=== PATIENT | female | born 1960 | race African-American/Black ===

== ENCOUNTER 2019-06-07 08:00 | Inpatient (IN) | payer OTHER ==
[2019-05-24 12:25] VITALS: BMI 35.8
--- NOTE | 2019-06-06 21:58 | HP ---
Admitting History and Physical - Admission Chief Complaint: right knee osteoarthritis x years History of Present Illness: 59 year old female presents in regard to their right knee. Long-standing history of right knee osteoarthritis. Patient complains of pain, limited range of motion, difficulty ambulating, and difficulty with activities of daily living. Patient has failed conservative treatment options including PO medications, activity modification, injections, and exercise programs. At this point, patient like to proceed with surgical intervention, right total knee arthroplasty MAKOplasty. History Source: Patient - Past Medical History Cardiovascular: Yes: HTN, Hyperlipdemia Renal/: Yes: Other (overactive bladderpl) Infectious Disease: Yes: Other (HSV) Psych: Yes: Depression Musculoskeletal: Yes: Osteoarthritis - Past Surgical History Additional Past Surgical History: See written history & physical. - Smoking History Smoking history: Former smoker Have you smoked in the past 12 months: No Aproximately how many cigarettes per day: 12 If you are a former smoker, when did you quit?: 10 y ago - Alcohol/Substance Use Hx Alcohol Use: No Home Medications - Allergies Allergies/Adverse Reactions: Allergies Allergy/AdvReac Type Severity Reaction Status Date / Time No Known Allergies Allergy Verified 05/24/19 12:09 - Home Medications Home Medications: Ambulatory Orders Lisinopril [Prinivil] 20 mg PO BID 06/11/12 Oxycodone HCl/Acetaminophen [Oxycodone-Acetaminophen 10-325] 1 each PO TID #9 tablet 10/10/15 Acyclovir [Zovirax -] 400 mg PO DAILY 05/24/19 Cholecalciferol (Vitamin D3) [Vitamin D3] 1,000 unit PO DAILY 05/24/19 Doxepin HCl [Sinequan -] 25 mg PO BID 05/24/19 Oxybutynin Chloride [Ditropan Xl] 10 mg PO DAILY 05/24/19 Atorvastatin Ca [Lipitor] 20 mg PO DAILY 05/25/19 Hydrochlorothiazide [Hctz -] 25 mg PO DAILY 05/25/19 Nifedipine [Procardia Xl] 60 mg PO DAILY 05/25/19 Oxycodone HCl/Acetaminophen [Percocet 10-325 mg Tablet] 1 tab PO TID PRN Review of Systems - Review of Systems Musculoskeletal: reports: Crepitus (right knee), Decreased ROM (right knee), Joint Pain (right knee), Joint Swelling (right knee) Physical Examination Constitutional: Yes: Well Nourished, No Distress Eyes: Yes: Conjunctiva Clear HENT: Yes: Atraumatic Neck: Yes: Supple Cardiovascular: Yes: Regular Rate and Rhythm Respiratory: Yes: Regular Gastrointestinal: Yes: Soft ...Rectal Exam: Yes: Deferred Musculoskeletal: Yes: Joint Stiffness (right knee), Joint Swelling (right knee) Assessment/Plan 59 year old female presents in regard to their right knee. Long-standing history of right knee osteoarthritis. Patient complains of pain, limited range of motion, difficulty ambulating, and difficulty with activities of daily living. Patient has failed conservative treatment options including PO medications, activity modification, injections, and exercise programs. At this point, patient like to proceed with surgical intervention, right total knee arthroplasty MAKOplasty. Pros, cons, risks, benefits, and alternatives of a right total knee arthroplasty MAKOplasty were discussed with the patient at length. Patient confirms their understanding and consents to proceed with a right total knee arthroplasty MAKOplasty.
[~2019-06-07 08:00] MED LIST: CEFAZOLIN 2 GM in DEXTROSE 5%-WATER - 50 ML IVPB ONE; TRANEXAMIC ACID 1000 MG/10 ML VIAL IVPUSH ONE
[2019-06-07] MEDS: oxyCODONE HCL 10 MG SUSTAINED ACTING TABLET PO ONE ×2 (10:10→16:54)
[2019-06-07] MEDS: PANTOPRAZOLE 40 MG TABLET (FP) PO ONE ×2 (10:10→16:54)
[2019-06-07] MEDS: CELECOXIB 200 MG CAPSULE PO ONE ×2 (10:10→16:53)
[2019-06-07] MEDS ORDERED: ceFAZolin SODIUM 1 GM VIAL ONE ×2 (10:54→11:43)
[2019-06-07] MEDS ORDERED: TRANEXAMIC ACID 1000 MG/10 ML VIAL ONE ×2 (10:54→11:43)
[2019-06-07] MEDS ORDERED: VANCOMYCIN 1,000 MG VIAL (RESTRICTED TO ID ONLY) ONE (10:54)
[2019-06-07] MEDS ORDERED: BUPIVACAINE LIPOSOME/PF (EXPAREL) 266 MG/20 ML VIAL ONE (11:00)
[2019-06-07] MEDS ORDERED: SODIUM CHLORIDE 0.9% P/F 10 ML VIAL IJ ONE (11:00)
[2019-06-07] MEDS ORDERED: MIDAZOLAM HCL 2 MG/2 ML SINGLE DOSE VIAL ONE ×3 (11:00→13:48)
[2019-06-07] MEDS ORDERED: PROPOFOL 20 ML ONE (14:05)
[2019-06-07] MEDS ORDERED: VANCOMYCIN 1,000 MG VIAL (RESTRICTED TO ID ONLY) IVPB ONE (14:20)
[2019-06-07] MEDS ORDERED: TRANEXAMIC ACID 1000 MG/10 ML VIAL IVPB ONE (14:34)
[2019-06-07] MEDS ORDERED: HYDROmorphone HCL/PF 1 MG/ML AMP ONE (14:43)
[2019-06-07] MEDS ORDERED: ACETAMINOPHEN INJECTION 100 ML IVPB ONE (15:01)
[2019-06-07] MEDS ORDERED: ONDANSETRON 4 MG/2 ML VIAL ONE (15:04)
[2019-06-07] MEDS: ACETAMINOPHEN 1000 MG/100 ML VIAL (NON FORMULARY) IVPB ONE ×2 (15:10→16:57)
[2019-06-07] MEDS ORDERED: ONDANSETRON 4 MG/2 ML VIAL IVPUSH PRN ×2 (15:15→21:00)
[2019-06-07] MEDS ORDERED: oxyCODONE HCL 5 MG TABLET PO PRN (15:15)
[2019-06-07] MEDS ORDERED: HYDROmorphone HCL CARPU-JECT 1 MG/1 ML DISP.SYRIN IVPUSH PRN (15:15)
[2019-06-07] MEDS ORDERED: PROMETHAZINE HCL 25 MG/1 ML VIAL IVPUSH PRN (15:15)
--- NOTE | 2019-06-07 15:15 | OP ---
Operative Note - Note: Operative Date: 06/07/19 Pre-Operative Diagnosis: Right knee OA Operation: Right DEVORAH TKA Post-Operative Diagnosis: Same as Pre-op Surgeon: Pedro Mcguire Odd Bundle Worker: Abdon Youssef Anesthesia: Spinal Estimated Blood Loss (mls): 200
[2019-06-07] MEDS ORDERED: ACETAMINOPHEN 1000 MG/100 ML VIAL (NON FORMULARY) IVPB ONE (15:16)
[2019-06-07] MEDS ORDERED: MAG HYDROX/AL HYDROX/SIMETH 30 ML UNIT-DOSE CUP PO PRN (15:24)
[2019-06-07] MEDS ORDERED: MAGNESIUM HYDROX 2400MG/30ML ORAL SUSPENSION 30 ML CUP PO PRN (15:24)
[2019-06-07] MEDS ORDERED: LACTATED RINGERS SOLUTION 1,000 ML IV SCH (15:30)
[2019-06-07] MEDS ORDERED: KETOROLAC TROMETHAMINE 30 MG/1 ML VIAL IVPUSH SCH (15:30)
[2019-06-07] MEDS: oxyCODONE HCL 5 MG TABLET PO PRN (15:40)
[2019-06-07] MEDS ORDERED: traMADol HCL 50 MG TABLET ONE (16:26)
[2019-06-07] MEDS: CEFAZOLIN 2 GM/D5W 2 GM/50 ML ML IVPB SCH (17:36)
[2019-06-07] MEDS ORDERED: traMADol HCL 50 MG TABLET PO SCH (18:00)
--- NOTE | 2019-06-07 20:32 | SURG ---
Surgery Circle Saw Operator Note Circle Saw Operator: Abdon Youssef PA-C Date of Service: 06/07/19 Diagnosis: Right knee osteoarthritis Procedure: DEVORAH RIGHT TOTAL KNEE ARTHROPLASTY I was present for the entirety of the operative procedure. For further detail, please refer to operative report. Visit type - Case Type Case Type: Scheduled - New patient This patient is new to me today: Yes Date on this admission: 06/07/19
[2019-06-07] MEDS: KETOROLAC TROMETHAMINE 30 MG/1 ML VIAL IVPUSH SCH (21:15)
[2019-06-07] MEDS: GABAPENTIN 300 MG CAPSULE (FP) PO SCH (21:16)
[2019-06-07] MEDS: ATORVASTATIN CA 20 MG TABLET (FP) PO SCH (21:16)
[2019-06-07] MEDS: ASCORBIC ACID 500 MG TABLET (FP) PO SCH (21:17)
[2019-06-07] MEDS: CELECOXIB 200 MG CAPSULE PO SCH (21:17)
[2019-06-07] MEDS: traMADol HCL 50 MG TABLET PO SCH (21:17)
[2019-06-07] MEDS: oxyCODONE HCL 10 MG SUSTAINED ACTING TABLET PO SCH (21:19)
[2019-06-07] MEDS: SENNOSIDES/DOCUSATE COMBO (SENNA PLUS) TABLET (UD) PO SCH (21:19)
[2019-06-07] MEDS: LISINOPRIL 20 MG TABLET (FP) PO SCH (21:20)
[2019-06-08] MEDS ORDERED: DEXAMETHASONE SOD PHOSPHATE 10 MG/1 ML VIAL IVPB ONE
[2019-06-08] MEDS: DOXEPIN HCL 25 MG CAPSULE PO SCH ×3 (00:09→21:35)
[2019-06-08] MEDS: CEFAZOLIN 2 GM/D5W 2 GM/50 ML ML IVPB SCH (01:58)
[2019-06-08] MEDS: KETOROLAC TROMETHAMINE 30 MG/1 ML VIAL IVPUSH SCH ×3 (02:05→15:30)
[2019-06-08] MEDS: traMADol HCL 50 MG TABLET PO SCH ×4 (06:17→21:36)
[2019-06-08] MEDS: ASPIRIN 325 MG TABLET PO SCH (08:05)
[2019-06-08 08:16] LABS: CALCIUM 8.6 mg/dl (8.5-10); CREATININE 1.1 mg/dl (0.55-1.3); POTASSIUM 4.6 mmol/L (3.5-5.1)
[2019-06-08] MEDS ORDERED: PT OWN MED DRAWER 7, Y5N ONE ×2 (08:23→20:38)
[2019-06-08 08:40] LABS: HEMATOCRIT 31.5 % (32.4-45.2); HEMOGLOBIN 10.2 GM/dl (10.7-15.3); MCH 27.5 pg (25.7-33.7); MCHC 32.3 g/dl (32.0-36.0); MEAN CELL VOLUME 85.1 fl (80-96); MEAN PLT VOLUME 10.1 fl (7.5-11.1); PLATELET COUNT 243 K/MM3 (134-434); RDW 15.2 % (11.6-15.6); WHITE BLOOD COUNT 11.4 K/mm3 (4.0-10.8)
[2019-06-08] MEDS: SOLIFENACIN SUCCINATE 5 MG TAB PO SCH (09:51)
[2019-06-08] MEDS: oxyCODONE HCL 10 MG SUSTAINED ACTING TABLET PO SCH ×2 (09:55→21:35)
[2019-06-08] MEDS: NIFEdipine E.R 60 MG TABLET (UD) PO SCH (09:55)
[2019-06-08] MEDS: LISINOPRIL 20 MG TABLET (FP) PO SCH ×2 (09:55→21:36)
[2019-06-08] MEDS: GABAPENTIN 300 MG CAPSULE (FP) PO SCH ×2 (09:55→21:36)
[2019-06-08] MEDS: PANTOPRAZOLE 40 MG TABLET (FP) PO SCH (09:55)
[2019-06-08] MEDS: CELECOXIB 200 MG CAPSULE PO SCH ×2 (09:55→21:36)
[2019-06-08] MEDS: HYDROCHLOROTHIAZIDE 25 MG TABLET (FP) PO SCH (09:55)
[2019-06-08] MEDS: SENNOSIDES/DOCUSATE COMBO (SENNA PLUS) TABLET (UD) PO SCH ×2 (09:55→21:35)
[2019-06-08] MEDS: MULTIVITAMINS (DAILY MVI) TABLET (FP) PO SCH (09:55)
[2019-06-08] MEDS: ACYCLOVIR 400 MG TABLET PO SCH (10:00)
[2019-06-08] MEDS: ASCORBIC ACID 500 MG TABLET (FP) PO SCH ×2 (10:05→21:34)
--- NOTE | 2019-06-08 10:59 | SPEC ---
DATE OF OPERATION: 06/07/2019 PREOPERATIVE DIAGNOSIS: Right knee osteoarthritis. POSTOPERATIVE DIAGNOSIS: Right knee osteoarthritis. PROCEDURE: Right total knee replacement with MAKOplasty robotic navigation. ATTENDING SURGEON: Pedro Mcguire MD EMPLOYMENT AND CLAIMS AIDE: BRYCE Turner ANESTHESIA: Spinal plus sedation. ESTIMATED BLOOD LOSS: 200 mL. COMPLICATIONS: None. DISPOSITION: The patient was transferred to the PACU in stable condition. IMPLANTS USED: [place] Triathlon cementless size 5 femoral component, size 4 tibial component, 13-mm posterior stabilized polyethylene component, 32-mm patellar component. INDICATIONS: This is a 59-year-old female who presented to the office complaining of severe right knee pain. She was seen and examined by Dr. Mcguire and diagnosed with severe right knee osteoarthritis. The patient was initially treated conservatively with injections, medications, and physical therapy but continued to have severe pain and ambulatory dysfunction. She was, therefore, indicated for a total knee replacement. The risks, benefits, and alternatives to the procedure were explained to the patient in great detail, and she elected to proceed with the procedure. DESCRIPTION OF PROCEDURE: On the day of surgery, the patient was taken to the operating room and placed on the OR table. Spinal anesthesia was administered by the anesthesiologist. The patient was then positioned supine on the table and all bony prominences were padded. The knee was then prepped and draped in the usual sterile fashion and intravenous antibiotics were given for infection prophylaxis. A surgical time-out was then performed with the team, and the patients identity, procedure, side, availability of implants, and the administration of antibiotics was confirmed. With the knee flexed, a midline incision was made and carried down through the subcutaneous fat to the underlying retinaculum. A medial parapatellar arthrotomy was performed. This was followed by a subperiosteal dissection of the tissue off the proximal, medial tibia. A portion of fat pad was removed from under the patellar tendon, and a small portion of fat was excised off the distal supracondylar femur. Electrocautery and an Aquamantys bipolar sealing device were used to achieve hemostasis. The knee was then flexed further and the anterior horn of the lateral meniscus was released from the midline. Next, the anterior and posterior cruciate ligaments were transected. Grade 4 changes were noted diffusely throughout the knee. Femoral and tibial checkpoints were then placed in the appropriate location using a mallet. Two parallel bicortical self-drilling pins were placed in the tibial diaphysis after making stab incisions and bluntly dissecting down to bone. Two pins were then placed in the distal supracondylar femur. The [employer] navigation arrays were then attached to both the femoral and tibial pins and the lower extremity was then registered to the robotic navigation device using various joint movements, as well as inputting several dozen reference points. The knee was then taken through a full range of motion with a corrective force applied. Alignment in varus/valgus as well as flexion/extension and soft tissue balance was measured in various positions. The navigation device showed a numerical and graphic representation of the soft tissue balance. The components were repositioned virtually using the software until optimal soft tissue balance was achieved on screen. Once this was accomplished, the final plan was saved and sent to the robot. Self-retaining retractors were then placed at the joint line for exposure and protection of the collateral ligaments. The robot was brought into the sterile field and registered with the navigation device. The robotic arm with attached oscillating saw blade was then used to perform femoral and tibial bone cuts as per the saved software plan. The femoral box cut was made using the appropriately sized manual cutting guide. The knee was then irrigated. Trial components were placed and the knee was taken through a full range of motion to assess soft tissue balance and alignment. The range of motion was found to be excellent and the soft tissue balance was optimal and according to plan. The knee was then put into extension and the patella everted. The synovium around the patella was circumscribed with electrocautery. A caliper was used to measure the patellar thickness and a saw was then used to resect the patella at the chondro-osseous junction. The cut surface was then sized and drilled for the appropriate patellar button, with care taken to medialize it. A trial patella was then placed and the knee was again taken through a full range of motion. The knee was found to have both good balance and good patellar tracking. All of the components were removed except the tibial base plate. The appropriate instrumentation was used to drill and punch the proximal tibia for the keel of the final component. All bony surfaces were then cleaned with pulsatile lavage and dried. Cementless [place] Triathlon knee replacement components were then impacted in place and found to have a stable press-fit. A trial polyethylene component was placed and the knee was again taken through a full range of motion to assess stability, balance, and patellar tracking. This was found to be optimal and the trial polyethylene was exchanged for the appropriately sized real implant. The wound was then thoroughly irrigated with normal saline. A 3-minute dilute Betadine lavage was performed. The knee was again irrigated using a pulsatile lavage device. A periarticular injection was used to locally infiltrate the capsular tissues surrounding the implant and prosthesis. Then No. 1 Polysorb and 0 VLoc 180 barbed sutures were used to close the arthrotomy. Then No. 1 Polysorb and 2-0 VLoc 90 sutures were used in the subcutaneous tissues. Then 4-0 undyed Vicryl and Dermabond skin adhesive was used to close the stab incisions made for the navigation pins. The skin was closed using both 3-0 VLoc 90 suture in a running subcuticular fashion and Dermabond skin adhesive. Once this was completed a sterile Aquacel dressing and compressive Mike-wrap was applied. The patient was then awakened and taken to the PACU in stable condition. Shahida JENNINGS/[id number]
--- NOTE | 2019-06-08 20:32 | PN ---
Progress Note (short form) - Note Progress Note: Pt seen and examined. Nausea/constipation. Knee doing well. AVSS Selected Entries 06/09/19 06/09/19 06:00 07:58 Temperature 97.9 F Pulse Rate 79 Respiratory 19 Rate Blood Pressure 102/50 L O2 Sat by Pulse 95 97 Oximetry (%) Oxygen Delivery Room Air Room Air Method Laboratory Tests 06/08/19 06/08/19 06:59 06:59 WBC 11.4 H Hgb 10.2 L Hct 31.5 L Plt Count 243 Sodium 139 Potassium 4.6 Chloride 104 Carbon Dioxide 26 Anion Gap 9 BUN 34.0 H Creatinine 1.1 Est GFR (CKD-EPI)AfAm 63.20 Est GFR (CKD-EPI)NonAf 54.53 Random Glucose 199 H Calcium 8.6 Gen: NAD RLE: c/d/i, NVID A/P 59yo female s/p R DEVORAH TKA Miralax PT/OOB D/C home Friday if feeling better
[2019-06-08] MEDS: ATORVASTATIN CA 20 MG TABLET (FP) PO SCH (21:35)
[2019-06-08] MEDS: POLYETHYLENE GLYCOL 3350 119 GM BTL PO SCH (22:51)
[2019-06-09] MEDS: traMADol HCL 50 MG TABLET PO SCH ×4 (06:22→21:30)
[2019-06-09 07:37] LABS: HEMATOCRIT 27.7 % (32.4-45.2); HEMOGLOBIN 9.1 GM/dl (10.7-15.3); MCH 27.6 pg (25.7-33.7); MCHC 32.7 g/dl (32.0-36.0); MEAN CELL VOLUME 84.5 fl (80-96); MEAN PLT VOLUME 9.3 fl (7.5-11.1); PLATELET COUNT 226 K/MM3 (134-434); RBC 3.28 M/mm3 (3.60-5.2); RDW 14.9 % (11.6-15.6); WHITE BLOOD COUNT 15.4 K/mm3 (4.0-10.8)
[2019-06-09] MEDS: ASPIRIN 325 MG TABLET PO SCH (07:42)
--- NOTE | 2019-06-09 09:11 | DS ---
Physical Examination Vital Signs: Vital Signs Temperature 97.9 F 06/09/19 06:00 Pulse Rate 79 06/09/19 06:00 Respiratory Rate 18 06/09/19 07:58 Blood Pressure 102/50 L 06/09/19 06:00 O2 Sat by Pulse Oximetry (%) 97 06/09/19 07:58 Labs: CBC, BMP 06/09/19 07:00 06/08/19 06:59 Discharge Summary Problems reviewed: Yes Reason For Visit: RIGHT KNEE OSTEOARTHRITIS Current Active Problems Osteoarthritis of right knee (Acute) Procedures: Principal: right perez TKA Hospital Course: Admitted for elective surgery. Procedure performed without complications. Pt received postoperative antibiotic prophylaxis and DVT ppx. Ambulated with physical therapy. Stable for discharge home with outpatient followup. Condition: Stable - Instructions Diet, Activity, Other Instructions: Dr. Mcguire - Knee Replacement Instructions Keep the Aquacel dressing on until removed by Dr. Mcguire in 10-14 days - it is antibacterial and waterproof and you can shower with it on. Call the office for a follow-up appointment with Dr. Mcguire in 10-14 days. [phone] Take one Aspirin 325mg daily for 6 weeks to prevent blood clots in your legs. Take one Pantoprazole 40mg daily for 6 weeks to protect against heartburn and ulcers. Take Cephalexin (antibiotic) 3x/day for 10 days to help prevent skin infection. Take Celebrex 200mg twice daily for 30 days to reduce swelling and inflammation. Take a multivitamin, stool softener, and extra Vitamin C supplement daily. For pain: *Mild pain (1-3/10): Take 1 Tramadol tablet every 4 hours as needed. Moderate pain (4-6/10): Take 1 Tramadol tablet and 1 Percocet tablet every 4 hours as needed. Severe pain (7-10/10): Take 1 Tramadol tablet and 2 Percocet tablets every 4 hours as needed. Activity: You can put as much weight on the operative leg as you want. Right after you get home, there will be a physical therapist coming to your house to help you walk around and bend/straighten your knee. After your follow-up appointment, you will be sent for more intensive outpatient physical therapy which will include machines and equipment that the home therapist cannot bring to your house. Always use a walker or cane for balance and to prevent falls. Expect to see swelling/bruising from the operative site all the way down to your toes. Wear the compression stocking on the operative side during the day to minimize how much swelling there is in your foot/ankle. Don't wear the stocking at night. You don't have to wear a stocking on the other side. Disposition: VNS/HOME HEALTH CARE - Home Medications Comprehensive Discharge Medication List: Ambulatory Orders Lisinopril [Prinivil] 20 mg PO BID 06/11/12 Acyclovir [Zovirax -] 400 mg PO DAILY 05/24/19 Cholecalciferol (Vitamin D3) [Vitamin D3] 1,000 unit PO DAILY 05/24/19 Doxepin HCl [Sinequan -] 25 mg PO BID 05/24/19 Oxybutynin Chloride [Ditropan Xl] 10 mg PO DAILY 05/24/19 Atorvastatin Ca [Lipitor] 20 mg PO DAILY 05/25/19 Hydrochlorothiazide [Hctz -] 25 mg PO DAILY 05/25/19 Nifedipine [Procardia Xl] 60 mg PO DAILY 05/25/19 Ascorbic Acid [Vitamin C -] 500 mg PO BID tablet 06/09/19 Aspirin [ASA -] 325 mg PO DAILY@0800 tablet 06/09/19 Celecoxib [CeleBREX -] 200 mg PO BID #60 capsule 06/09/19 Cephalexin Monohydrate [Keflex -] 500 mg PO TID #30 capsule 06/09/19 Multivitamins [Multivit ([facility] Formulary)] 1 tab PO DAILY tab 06/09/19 Oxycodone HCl/Acetaminophen [Percocet 5-325 mg Tablet] 1 - 2 tab PO Q4H PRN #60 tablet MDD 10 06/09/19 Pantoprazole Sodium [Protonix -] 40 mg PO DAILY #40 tablet.ec 06/09/19 Sennosides/Docusate Sodium [Pericolace -] 2 tablet PO BID tablet 06/09/19 traMADol HCL [Ultram -] 50 mg PO Q4H PRN #60 tablet MDD 6 06/09/19
[2019-06-09] MEDS ORDERED: PT OWN MED DRAWER 7, Y5N ONE ×2 (09:17→21:14)
[2019-06-09] MEDS: SENNOSIDES/DOCUSATE COMBO (SENNA PLUS) TABLET (UD) PO SCH ×3 (09:24→21:34)
[2019-06-09] MEDS: ASCORBIC ACID 500 MG TABLET (FP) PO SCH ×2 (09:25→21:30)
[2019-06-09] MEDS: SOLIFENACIN SUCCINATE 5 MG TAB PO SCH (09:25)
[2019-06-09] MEDS: PANTOPRAZOLE 40 MG TABLET (FP) PO SCH (09:25)
[2019-06-09] MEDS: CELECOXIB 200 MG CAPSULE PO SCH ×2 (09:26→21:29)
[2019-06-09] MEDS: LISINOPRIL 20 MG TABLET (FP) PO SCH ×2 (09:27→21:31)
[2019-06-09] MEDS: MULTIVITAMINS (DAILY MVI) TABLET (FP) PO SCH (09:27)
[2019-06-09] MEDS: oxyCODONE HCL 10 MG SUSTAINED ACTING TABLET PO SCH ×2 (09:27→21:30)
[2019-06-09] MEDS: GABAPENTIN 300 MG CAPSULE (FP) PO SCH ×2 (09:27→21:29)
[2019-06-09] MEDS: HYDROCHLOROTHIAZIDE 25 MG TABLET (FP) PO SCH (09:28)
[2019-06-09] MEDS: ACYCLOVIR 400 MG TABLET PO SCH (09:28)
[2019-06-09] MEDS: POLYETHYLENE GLYCOL 3350 119 GM BTL PO SCH ×2 (09:28→21:34)
[2019-06-09] MEDS: DOXEPIN HCL 25 MG CAPSULE PO SCH ×2 (09:28→21:29)
[2019-06-09] MEDS: NIFEdipine E.R 60 MG TABLET (UD) PO SCH (09:29)
[2019-06-09] MEDS: oxyCODONE HCL 5 MG TABLET PO PRN (19:37)
[2019-06-09] MEDS: ATORVASTATIN CA 20 MG TABLET (FP) PO SCH (21:30)
[2019-06-10] MEDS: traMADol HCL 50 MG TABLET PO SCH ×5 (04:01→23:53)
[2019-06-10] MEDS: ASPIRIN 325 MG TABLET PO SCH (07:56)
[2019-06-10] MEDS: oxyCODONE HCL 10 MG SUSTAINED ACTING TABLET PO SCH (10:01)
[2019-06-10] MEDS: GABAPENTIN 300 MG CAPSULE (FP) PO SCH (10:01)
[2019-06-10] MEDS: CELECOXIB 200 MG CAPSULE PO SCH ×2 (10:01→21:38)
[2019-06-10] MEDS: SENNOSIDES/DOCUSATE COMBO (SENNA PLUS) TABLET (UD) PO SCH ×3 (10:02→21:42)
[2019-06-10] MEDS: SOLIFENACIN SUCCINATE 5 MG TAB PO SCH (10:03)
[2019-06-10] MEDS: MULTIVITAMINS (DAILY MVI) TABLET (FP) PO SCH (10:03)
[2019-06-10] MEDS: ASCORBIC ACID 500 MG TABLET (FP) PO SCH ×2 (10:03→21:38)
[2019-06-10] MEDS: PANTOPRAZOLE 40 MG TABLET (FP) PO SCH (10:03)
[2019-06-10] MEDS: LISINOPRIL 20 MG TABLET (FP) PO SCH ×2 (11:00→21:37)
[2019-06-10] MEDS: HYDROCHLOROTHIAZIDE 25 MG TABLET (FP) PO SCH (11:00)
[2019-06-10] MEDS ORDERED: PT OWN MED DRAWER 7, Y5N ONE ×2 (11:30→20:53)
[2019-06-10] MEDS: POLYETHYLENE GLYCOL 3350 119 GM BTL PO SCH ×2 (11:33→21:38)
[2019-06-10] MEDS: DOXEPIN HCL 25 MG CAPSULE PO SCH ×2 (11:33→21:40)
[2019-06-10] MEDS: ACYCLOVIR 400 MG TABLET PO SCH (11:34)
--- NOTE | 2019-06-10 12:36 | PATH ---
Surgical Pathology Report Patient Name: LAINE ENRIQUEZ Med. Rec. #: [id number] /Age/Gender: 1960 (Age: 59) / F Account: [id number] Location: [facility] Taken: 06/07/2019 Received: 06/07/2019 Reported: 06/10/2019 Physicians: Pedro Mcguire M.D. Specimen(s) Received RIGHT KNEE BONES Clinical History Right knee osteoarthritis Final Diagnosis KNEE BONES, RIGHT, TOTAL KNEE REPLACEMENT: DEGENERATIVE JOINT DISEASE. Electronically Signed Jennifer Pizraro M.D. Gross Description Received in formalin labeled "right knee bones," is an 11.5 x 8.5 x 2.0 cm aggregate of multiple portions of bone and soft tissue, consistent with knee bones. There is a 2.5 cm in greatest dimension area of eburnation present. The remaining articular surfaces are meehan-brown and diffusely granular. The underlying trabecular bone is yellow and hard. Plant Buyer sections are submitted in one cassette, following decalcification. /06/08/2019 [facility]
[2019-06-10 15:05] LABS: CREATININE 1.2 mg/dl (0.55-1.3); POTASSIUM 4.7 mmol/L (3.5-5.1)
--- NOTE | 2019-06-10 15:13 | CONSULT ---
Consult Consult Specialty:: Int Medicine Referred by:: Pedro Mcguire Reason for Consultation:: Post OP care - History of Present Illness Chief Complaint: Feeling unwell POD 2 History of Present Illness: 59 yrs old F with H/o HTN, Hypercholesterolemia, Obesity OA , Depression, chronic Back pain or percocet 1 tab TID at home , underwent election Rt Knee arthroplasty on 06/07/2019 , patient is cleared by orthopaedic to DC home as she participated in PT able to ambulate with walker, patient c/o feeling unwell , tremulous weak and low BP with low grade feverso medicine consult is called for further evaluation, patient denies any chills, cough, nausea, vomiting, last BM was in this am denies any melena or BRBPR, no c/o chest pain, SOB or Palpitation, patient denied any ETOH abuse or any other substance abuse at home never had MACHADO, PND or orthopnea. - History Source History Provided By: Patient - Past Medical History Cardio/Vascular: Yes: HTN, Hyperlipdemia Renal/: Yes: Other (overactive bladderpl) Infectious Disease: Yes: Other (HSV) Psych: Yes: Depression Musculoskeletal: Yes: Osteoarthritis - Alcohol/Substance Use Hx Alcohol Use: No - Smoking History Smoking history: Former smoker Have you smoked in the past 12 months: No Aproximately how many cigarettes per day: 12 If you are a former smoker, when did you quit?: 10 y ago Home Medications - Allergies Allergies/Adverse Reactions: Allergies Allergy/AdvReac Type Severity Reaction Status Date / Time No Known Allergies Allergy Verified 06/07/19 09:30 - Home Medications Home Medications: Ambulatory Orders RX: Lisinopril [Prinivil] 20 mg PO BID 06/11/12 RX: Acyclovir [Zovirax -] 400 mg PO DAILY 05/24/19 RX: Cholecalciferol (Vitamin D3) [Vitamin D3] 1,000 unit PO DAILY 05/24/19 RX: Doxepin HCl [Sinequan -] 25 mg PO BID 05/24/19 RX: Oxybutynin Chloride [Ditropan Xl] 10 mg PO DAILY 05/24/19 RX: Atorvastatin Ca [Lipitor] 20 mg PO DAILY 05/25/19 RX: Hydrochlorothiazide [Hctz -] 25 mg PO DAILY 05/25/19 RX: Nifedipine [Procardia Xl] 60 mg PO DAILY 05/25/19 Oxycodone HCl/Acetaminophen [Percocet 5-325 mg Tablet] 1 - 2 tab PO Q4H PRN #60 tablet MDD 10 06/09/19 RX: Ascorbic Acid [Vitamin C -] 500 mg PO BID tablet 06/09/19 RX: Aspirin [ASA -] 325 mg PO DAILY@0800 tablet 06/09/19 RX: Celecoxib [CeleBREX -] 200 mg PO BID #60 capsule 06/09/19 RX: Cephalexin Monohydrate [Keflex -] 500 mg PO TID #30 capsule 06/09/19 RX: Multivitamins [Multivit ([facility] Formulary)] 1 tab PO DAILY tab 06/09/19 RX: Pantoprazole Sodium [Protonix -] 40 mg PO DAILY #40 tablet.ec 06/09/19 RX: Sennosides/Docusate Sodium [Pericolace -] 2 tablet PO BID tablet 06/09/19 RX: traMADol HCL [Ultram -] 50 mg PO Q4H PRN #60 tablet MDD 6 06/09/19 Family Medical History Family History: Unremarkable Review of Systems - Review of Systems Constitutional: reports: Malaise, Weakness. denies: Chills, Diaphoresis, Fever , Lethargy, Loss of Appetite, Night Sweats, Unintentional Wgt. Loss Eyes: denies: Blind Spots, Blurred Vision, Double Vision HENT: denies: Difficult Swallowing, Ear Discharge, Ear Pain, Epistaxis Neck: denies: Decreased ROM, Lumps, Pain on Movement, Stiffness Cardiovascular: denies: Chest Pain, Edema, Palpitations, Shortness of Breath Respiratory: denies: Cough, Exercise Intolerance, Hemoptysis, Orthopnea, PND Gastrointestinal: denies: Abdominal Pain, Bloating, Constipation, Diarrhea, Dysphagia, Indigestion, Melena, Nausea, Rectal Bleeding, Vomiting, Vomiting Blood Genitourinary: denies: Burning, Discharge, Dysuria Musculoskeletal: reports: Joint Pain (Ppost OP). denies: Back Pain, Crepitus, Decreased ROM Neurological: denies: Change in LOC, Change in Speech, Confusion, Dizziness Endocrine: denies: Excessive Sweating, Flushing, Increased Hunger Pain Intensity: 4 Physical Exam Vital Signs: Vital Signs Temperature 99.5 F 06/10/19 14:30 Pulse Rate 74 06/10/19 14:30 Respiratory Rate 16 06/10/19 14:30 Blood Pressure 92/58 L 06/10/19 14:30 O2 Sat by Pulse Oximetry (%) 97 06/10/19 12:57 Middle aged F comfortable not in distress HEENT: MM moist , conjunctiva pale, PERRLA, EOMI NECK: No JVd No Bruit CHEST: CTA/Bl CVS: S1S2 R no m/g/r ABD: Obese, non tender Bs + EXT: Rt Knee s/p surgery, Trace edema feet, Pulses + S/P SCALE EXPERT: No tremors AOX3 , normal speech, cranial N 2-12 , no gross motor sensory deficit. Labs: CBC, BMP 06/10/19 15:15 06/10/19 14:35 Imaging - Results EKG: Report Reviewed (NSR at 72 QTC 436 normal EKG) Problem List - Problems (1) Postoperative anemia Assessment/Plan: Patient has drop in H/H from base line 11.8/37 05/20/2019 to 9.1/27 06/09/19, will rpt H/h and re evaluate add PO Iron on DC Home. Problems reviewed: Yes Code(s): D64.9 - ANEMIA, UNSPECIFIED (2) Lethargy Assessment/Plan: most likely multi-factorial excessive narcotic use, post Op anemia , plaese hold injectable narcotic , consider toradol PRN for sever kimberlee and Percocet 1 tab TID PRN (home dose) will observe over clinically night off BP meds on encourage PO Hydration, and salt liberal diet. Problems reviewed: Yes Code(s): R53.83 - OTHER FATIGUE (3) Hypotension Assessment/Plan: Hold BP meds a IV Hydration evaluate for orthostatic Hypotention if symptomatic Problems reviewed: Yes Code(s): I95.9 - HYPOTENSION, UNSPECIFIED (4) Dehydration Assessment/Plan: Elevated BUN 33 Craet 1.2 IV Hydration F/U BMP Problems reviewed: Yes Code(s): E86.0 - DEHYDRATION (5) Depression Assessment/Plan: cont Home meds. Problems reviewed: Yes Code(s): F32.9 - MAJOR DEPRESSIVE DISORDER, SINGLE EPISODE, UNSPECIFIED (6) GERD (gastroesophageal reflux disease) Assessment/Plan: Cont PPI Problems reviewed: Yes Code(s): K21.9 - GASTRO-ESOPHAGEAL REFLUX DISEASE WITHOUT ESOPHAGITIS (7) Urinary and bowel incontinence Assessment/Plan: Cont home meds Problems reviewed: Yes Code(s): R32 - UNSPECIFIED URINARY INCONTINENCE; R15.9 - FULL INCONTINENCE OF FECES Visit type - Emergency Visit Emergency Visit: Yes ED Registration Date: 06/07/19 Care time: The patient presented to the Emergency Department on the above date and was hospitalized for further evaluation of their emergent condition. - New Patient This patient is new to me today: Yes Date on this admission: 06/10/19 - Critical Care Critical Care patient: No
[2019-06-10] MEDS: NIFEdipine E.R 60 MG TABLET (UD) PO SCH (15:16)
[2019-06-10 15:23] LABS: BASO % 0.7 % (0-2.0); EOS % 1.6 % (0-4.5); HEMATOCRIT 28.9 % (32.4-45.2); HEMOGLOBIN 9.1 GM/dl (10.7-15.3); LYMPH % 25.4 % (8-40); MCH 27.3 pg (25.7-33.7); MCHC 31.4 g/dl (32.0-36.0); MEAN PLT VOLUME 9.1 fl (7.5-11.1); MONO % 6.6 % (3.8-10.2); NEUT % 65.7 % (42.8-82.8); PLATELET COUNT 191 K/MM3 (134-434); RBC 3.32 M/mm3 (3.60-5.2); RDW 15.2 % (11.6-15.6); WHITE BLOOD COUNT 10.8 K/mm3 (4.0-10.8)
[2019-06-10] MEDS ORDERED: SODIUM CHLORIDE 1,000 ML IV SCH (15:45)
--- NOTE | 2019-06-10 15:51 | EKG ---
Test Reason : Blood Pressure : / mmHG Vent. Rate : 072 BPM Atrial Rate : 072 BPM P-R Int : 176 ms QRS Dur : 084 ms QT Int : 398 ms P-R-T Axes : 057 024 015 degrees QTc Int : 435 ms NORMAL SINUS RHYTHM NORMAL ECG WHEN COMPARED WITH ECG OF 13-NOV-2015 07:50, NO SIGNIFICANT CHANGE WAS FOUND Confirmed by DESIRE PALACIOS MD ([id number]) on 06/10/2019 3:51:16 PM Referred By: Pedro Mcguire Confirmed By:DESIRE PALACIOS MD
[2019-06-10 15:53] LABS: MAGNESIUM 2.6 mg/dL (1.8-2.4)
[2019-06-10] MEDS ORDERED: SODIUM CHLORIDE 500 ML IV STA (17:46)
--- NOTE | 2019-06-10 17:53 | PN ---
Progress Note (short form) - Note Progress Note: Pt was seen and examined on 06/10/19. This note is for that encounter. Pt seen and examined. Knee doing well but c/o UE and LE shakes/tremors and general ill feeling. Was not discharged home yesterday because of this. No fevers or infectious signs. Hospitalist evaluation appreciated. AVSS Selected Entries 06/10/19 14:30 Temperature 99.5 F Pulse Rate 74 Respiratory 16 Rate Blood Pressure 92/58 L Laboratory Tests 06/10/19 06/10/19 06/10/19 14:35 14:35 15:15 WBC 10.8 Hgb 9.1 L Hct 28.9 L Plt Count 191 Sodium 136 Potassium 4.7 Chloride 99 Carbon Dioxide 26 Anion Gap 11 BUN 33.0 H Creatinine 1.2 Est GFR (CKD-EPI)AfAm 56.89 Est GFR (CKD-EPI)NonAf 49.08 Random Glucose 95 Calcium 8.0 L Magnesium 2.6 H LD Total 245 Gen: NAD RLE: c/d/i, NVID EKG WNL A/P POD#3 s/p Isac R TKA Hospitalist consult appreciated. Continue IVF, encourage PO intake of food and liquids PT/OOB - WBAT RLE Will reevaluate Friday.
[2019-06-10] MEDS: ATORVASTATIN CA 20 MG TABLET (FP) PO SCH (21:38)
[2019-06-10] MEDS: FERROUS SO4 325 MG TABLET (FP) PO SCH (21:38)
[2019-06-10] MEDS: SODIUM CHLORIDE 1,000 ML IV SCH (21:39)
[2019-06-11] MEDS ORDERED: CEFAZOLIN 2 GM/D5W 2 GM/50 ML ML IVPB ONE (04:30)
[2019-06-11] MEDS: traMADol HCL 50 MG TABLET PO SCH ×4 (04:35→21:53)
[2019-06-11] MEDS ORDERED: ACETAMINOPHEN 1000 MG/100 ML VIAL (NON FORMULARY) IVPB ONE ×2 (04:39→17:36)
--- NOTE | 2019-06-11 04:42 | ED.PROV ---
Physicial Exam I saw and examined the patient. I was called to the floor to examine this 59-year-old female who is status post total knee replacement 3 days ago. Patient was ambulating when she was unable to bear weight on that leg and she went down onto her knees. Patient had dehiscence of the surgical wound. X-ray was obtained which does not show any acute fractures or dislocation Exam: GENERAL: The patient is awake, alert, and fully oriented, in no acute distress. HEAD: Normal with no signs of trauma. EYES: Pupils equal, round and reactive to light, extraocular movements intact, sclera anicteric, conjunctiva clear. EXTREMITIES: Right lower extremity: There is a surgical wound over the anterior aspect of the knee with approximately 6 cm of dehiscence and serosanguineous discharge from the area of dehiscence. Pulses distal are 2+ and sensation is intact distally NEUROLOGICAL: Normal speech, no focal deficit PSYCH: Normal mood, normal affect. SKIN: Warm, Dry, normal turgor, no rashes or lesions noted. - Vital Signs Last Vital Signs Temp Pulse Resp BP Pulse Ox 98.9 F 83 18 111/48 L 95 06/11/19 01:56 06/11/19 01:56 06/11/19 01:56 06/11/19 01:56 06/11/19 01:56
[2019-06-11] MEDS ORDERED: VANCOMYCIN HCL 1,500 MG/500 ML BAG IVPB ONE (05:15)
[2019-06-11] MEDS ORDERED: HYDROmorphone HCL CARPU-JECT 1 MG/1 ML DISP.SYRIN IVPUSH STA (05:58)
[2019-06-11 08:15] LABS: BASO % 0.1 % (0-2.0); EOS % 1.4 % (0-4.5); HEMATOCRIT 25.2 % (32.4-45.2); HEMOGLOBIN 8.3 GM/dl (10.7-15.3); LYMPH % 14.9 % (8-40); MCH 27.7 pg (25.7-33.7); MCHC 32.9 g/dl (32.0-36.0); MEAN CELL VOLUME 84.3 fl (80-96); MONO % 6.2 % (3.8-10.2); NEUT % 77.4 % (42.8-82.8); PLATELET COUNT 193 K/MM3 (134-434); RBC 2.98 M/mm3 (3.60-5.2); RDW 14.7 % (11.6-15.6); WHITE BLOOD COUNT 10.3 K/mm3 (4.0-10.8)
[2019-06-11 08:30] LABS: CALCIUM 7.6 mg/dl (8.5-10); CREATININE 0.8 mg/dl (0.55-1.3); MAGNESIUM 2.2 mg/dL (1.8-2.4); POTASSIUM 4.5 mmol/L (3.5-5.1)
--- NOTE | 2019-06-11 08:50 | PN ---
Physical Exam: SUBJECTIVE: Patient seen and examined at the bedside. fell last night after attempting to go to the bathroom, felt slightly weak and lost her balance. ED response note reviewed. OBJECTIVE: Patient is a 59 year old female status post total knee replacement 06/07/2019. Patient was ambulating when she was unable to bear weight on that leg and she went down onto her knees. Patient had dehiscence of the surgical wound. now slight drop in her hmg/hct, will repeat cbc. Vital Signs Period Temp Pulse Resp BP Sys/Holt Pulse Ox Last 24 Hr 97.7 F-100.1 F 71-97 16-20 90-134/44-100 95-97 GENERAL: The patient is awake, alert, and fully oriented, in no acute distress. HEAD: Normal with no signs of trauma. EYES: PERRL, extraocular movements intact, sclera anicteric, conjunctiva clear. No ptosis. ENT: Ears normal, nares patent, oropharynx clear without exudates, moist mucous membranes. NECK: Trachea midline, full range of motion, supple. LUNGS: Breath sounds equal, clear to auscultation bilaterally HEART: Regular rate and rhythm ABDOMEN: Soft, nontender, nondistended, normoactive bowel sounds, no guarding, no rebound, no hepatosplenomegaly, no masses. EXTREMITIES: right knee surgical dressing with sero sang drainage. patient to go back to the OR s/p fall after right knee NEUROLOGICAL: Normal speech, gait not observed. PSYCH: Normal mood, normal affect. Laboratory Results - last 24 hr 06/10/19 06/10/19 06/10/19 14:35 14:35 15:15 WBC 10.8 RBC 3.32 L Hgb 9.1 L Hct 28.9 L MCV 87.0 MCH 27.3 MCHC 31.4 L RDW 15.2 Plt Count 191 MPV 9.1 Absolute Neuts (auto) 7.0 Neutrophils % 65.7 Lymphocytes % 25.4 Monocytes % 6.6 Eosinophils % 1.6 Basophils % 0.7 Sodium 136 Potassium 4.7 Chloride 99 Carbon Dioxide 26 Anion Gap 11 BUN 33.0 H Creatinine 1.2 Est GFR (CKD-EPI)AfAm 56.89 Est GFR (CKD-EPI)NonAf 49.08 Random Glucose 95 Calcium 8.0 L Magnesium 2.6 H LD Total 245 06/11/19 06/11/19 07:25 07:25 WBC 10.3 RBC 2.98 L Hgb 8.3 L Hct 25.2 L MCV 84.3 MCH 27.7 MCHC 32.9 RDW 14.7 Plt Count 193 MPV 9.0 Absolute Neuts (auto) 8.1 Neutrophils % 77.4 Lymphocytes % 14.9 Monocytes % 6.2 Eosinophils % 1.4 Basophils % 0.1 Sodium 137 Potassium 4.5 Chloride 103 Carbon Dioxide 27 Anion Gap 7 L BUN 20.0 H Creatinine 0.8 Est GFR (CKD-EPI)AfAm 92.87 Est GFR (CKD-EPI)NonAf 80.13 Random Glucose 117 H Calcium 7.6 L Magnesium 2.2 LD Total Active Medications Generic Name Dose Route Start Last Admin Trade Name Freq PRN Reason Stop Dose Admin Acyclovir 400 mg 06/08/19 10:00 06/10/19 11:34 Zovirax - PO 400 mg DAILY JUMA Administration Al Hydroxide/Mg Hydroxide 30 ml 06/07/19 15:24 Mylanta Oral Suspension - PO Q4H PRN DYSPEPSIA Ascorbic Acid 500 mg 06/07/19 22:00 06/10/19 21:38 Vitamin C - PO 500 mg BID JUMA Administration Atorvastatin Calcium 20 mg 06/07/19 22:00 06/10/19 21:38 Lipitor - PO 20 mg HS JUMA Administration Celecoxib 200 mg 06/07/19 22:00 06/10/19 21:38 Celebrex - PO 200 mg BID JUMA Administration Doxepin HCl 25 mg 06/07/19 22:00 06/10/19 21:40 Sinequan - PO Not Given BID JUMA Ferrous Sulfate 325 mg 06/10/19 22:00 06/10/19 21:38 Feosol - PO 325 mg BID JUMA Administration Hydrochlorothiazide 25 mg 06/08/19 10:00 06/10/19 11:00 Hctz - PO Not Given DAILY JUMA Sodium Chloride 1,000 mls @ 125 mls/hr 06/10/19 18:45 06/10/19 21:39 Normal Saline - IV 125 mls/hr ASDIR JUMA Administration Cefazolin Sodium/Dextrose 2 gram in 50 mls @ 200 mls/hr 06/11/19 10:00 Ancef 2 Gm Premixed Ivpb - IVPB 06/12/19 02:14 Q8H-IV JUMA Lisinopril 20 mg 06/07/19 22:00 06/10/19 21:37 Prinivil PO Not Given BID JUMA Magnesium Hydroxide 30 ml 06/07/19 15:24 06/09/19 07:42 Milk Of Magnesia - PO 30 ml PRN PRN Administration CONSTIPATION Multivitamins/Minerals/Vitamin C 1 tab 06/08/19 10:00 06/10/19 10:03 Tab-A-Vit - PO 1 tab DAILY JUMA Administration Nifedipine 60 mg 06/08/19 10:00 06/10/19 15:16 Procardia Xl - PO Not Given DAILY JUMA Ondansetron HCl 4 mg 06/07/19 21:00 Zofran Injection IVPUSH Q6H PRN NAUSEA Pantoprazole Sodium 40 mg 06/08/19 10:00 06/10/19 10:03 Protonix - PO 40 mg DAILY JUMA Administration Polyethylene Glycol 17 gm 06/08/19 22:45 06/10/19 21:38 Miralax (For Daily Use) - PO Not Given BID JUMA Senna/Docusate Sodium 2 tablet 06/07/19 22:00 06/10/19 21:42 Pericolace - PO Not Given BID JUMA Solifenacin 5 mg 06/08/19 10:00 06/10/19 10:03 Vesicare - PO 5 mg DAILY JUMA Administration Tramadol HCl 50 mg 06/07/19 22:00 06/11/19 04:35 Ultram - PO 50 mg Q6H JUMA Administration ASSESSMENT/PLAN: Problem List - Problems (1) Fall Assessment/Plan: pteint s/p perez right total knee arthoplasty patient fell overnight while going to bathroom. lost balance and landed on right surgical knee. now with some sero sang drainage from the dressing and right knee wound dehiscence. for OR today for right knee irrigation and debridement, Code(s): W19.XXXA - UNSPECIFIED FALL, INITIAL ENCOUNTER (2) Dehydration Assessment/Plan: continue ivf Code(s): E86.0 - DEHYDRATION (3) Depression Assessment/Plan: continue home meds Code(s): F32.9 - MAJOR DEPRESSIVE DISORDER, SINGLE EPISODE, UNSPECIFIED (4) Postoperative anemia Assessment/Plan: repeat hmg/hct Code(s): D64.9 - ANEMIA, UNSPECIFIED Visit type - Emergency Visit Emergency Visit: Yes ED Registration Date: 06/07/19 Care time: The patient presented to the Emergency Department on the above date and was hospitalized for further evaluation of their emergent condition. - New Patient This patient is new to me today: Yes Date on this admission: 06/11/19 - Critical Care Critical Care patient: No - Discharge Referral Referred to [facility] No
[2019-06-11] MEDS: DOXEPIN HCL 25 MG CAPSULE PO SCH ×2 (09:58→21:52)
[2019-06-11] MEDS: PANTOPRAZOLE 40 MG TABLET (FP) PO SCH (09:58)
[2019-06-11] MEDS: LISINOPRIL 20 MG TABLET (FP) PO SCH ×2 (09:58→21:54)
[2019-06-11] MEDS: SOLIFENACIN SUCCINATE 5 MG TAB PO SCH (09:58)
[2019-06-11] MEDS: MULTIVITAMINS (DAILY MVI) TABLET (FP) PO SCH (09:58)
[2019-06-11] MEDS: HYDROCHLOROTHIAZIDE 25 MG TABLET (FP) PO SCH (09:58)
[2019-06-11] MEDS: NIFEdipine E.R 60 MG TABLET (UD) PO SCH (09:58)
[2019-06-11] MEDS: ACYCLOVIR 400 MG TABLET PO SCH (10:00)
[2019-06-11] MEDS: FERROUS SO4 325 MG TABLET (FP) PO SCH ×2 (10:00→21:54)
[2019-06-11] MEDS ORDERED: CEFAZOLIN 2 GM/D5W 2 GRAM/50 ML ML IVPB SCH (10:00)
[2019-06-11] MEDS: ASCORBIC ACID 500 MG TABLET (FP) PO SCH ×2 (10:01→21:54)
[2019-06-11] MEDS: CELECOXIB 200 MG CAPSULE PO SCH ×2 (10:01→21:54)
[2019-06-11] MEDS: POLYETHYLENE GLYCOL 3350 119 GM BTL PO SCH ×2 (10:24→21:55)
[2019-06-11] MEDS: SENNOSIDES/DOCUSATE COMBO (SENNA PLUS) TABLET (UD) PO SCH ×2 (10:25→21:55)
[2019-06-11] MEDS ORDERED: MIDAZOLAM HCL 2 MG/2 ML SINGLE DOSE VIAL ONE (11:24)
[2019-06-11] MEDS ORDERED: BUPIVACAINE LIPOSOME/PF (EXPAREL) 266 MG/20 ML VIAL ONE (11:24)
[2019-06-11] MEDS ORDERED: SODIUM CHLORIDE 0.9% P/F 10 ML VIAL IJ ONE (11:24)
[2019-06-11] MEDS ORDERED: BUPIVACAINE HCL/PF 0.5% (5MG/ML) 10 ML VIAL ONE (11:37)
[2019-06-11] MEDS ORDERED: PROPOFOL 20 ML ONE ×2 (12:05→12:06)
[2019-06-11] MEDS ORDERED: HYDROmorphone HCL/PF 1 MG/ML AMP ONE (12:05)
[2019-06-11] MEDS ORDERED: SUCCINYLCHOLINE CHLORIDE 200 MG/10 ML SYRINGE ONE (12:05)
[2019-06-11] MEDS ORDERED: ROCURONIUM BROMIDE 50 MG/5 ML SYRINGE ONE (12:06)
[2019-06-11] MEDS ORDERED: ceFAZolin SODIUM 1 GM VIAL ONE ×2 (13:17→14:38)
[2019-06-11] MEDS ORDERED: VANCOMYCIN 1,000 MG VIAL (RESTRICTED TO ID ONLY) ONE ×2 (14:19→14:38)
[2019-06-11] MEDS ORDERED: ceFAZolin SODIUM 1 GM VIAL IVPB ONE ×2 (16:14)
[2019-06-11] MEDS ORDERED: VANCOMYCIN 1,000 MG VIAL (RESTRICTED TO ID ONLY) IVPB ONE ×2 (16:15)
[2019-06-11] MEDS ORDERED: HYDROmorphone HCL CARPU-JECT 1 MG/1 ML DISP.SYRIN IVPUSH PRN (17:29)
[2019-06-11] MEDS ORDERED: ONDANSETRON 4 MG/2 ML VIAL IVPUSH PRN (17:29)
--- NOTE | 2019-06-11 17:29 | OP ---
Operative Note - Note: Operative Date: 06/11/19 Pre-Operative Diagnosis: right knee wound dehiscence, periposthetic dislocation Operation: right knee irrigation and debridement, component exchange. Findings: See dictation Post-Operative Diagnosis: Same as Pre-op Surgeon: Pedro Mcguire District Ranger: Malcolm Iqbal Anesthesia: General Estimated Blood Loss (mls): 250
[2019-06-11] MEDS ORDERED: LACTATED RINGERS SOLUTION 1,000 ML IV SCH (17:30)
[2019-06-11] MEDS ORDERED: ACETAMINOPHEN INJECTION 100 ML IVPB ONE (17:48)
[2019-06-11] MEDS: KETOROLAC TROMETHAMINE 30 MG/1 ML VIAL IVPUSH SCH (18:00)
[2019-06-11] MEDS ORDERED: KETOROLAC TROMETHAMINE 30 MG/1 ML VIAL ONE (18:03)
[2019-06-11] MEDS: VANCOMYCIN HCL 1,500 MG in DEXTROSE 5%-WATER - 500 ML IVPB SCH (19:13)
[2019-06-11] MEDS: ATORVASTATIN CA 20 MG TABLET (FP) PO SCH (21:54)
[2019-06-12] MEDS: CEFAZOLIN 2 GM/D5W 2 GM/50 ML ML IVPB SCH ×3 (00:13→18:36)
[2019-06-12] MEDS: KETOROLAC TROMETHAMINE 30 MG/1 ML VIAL IVPUSH SCH ×3 (00:13→12:10)
[2019-06-12] MEDS: traMADol HCL 50 MG TABLET PO SCH ×3 (04:15→21:28)
[2019-06-12] MEDS: VANCOMYCIN HCL 1,500 MG in DEXTROSE 5%-WATER - 500 ML IVPB SCH (06:17)
[2019-06-12] MEDS: SOLIFENACIN SUCCINATE 5 MG TAB PO SCH (09:15)
[2019-06-12 09:39] LABS: HEMATOCRIT 25.9 % (32.4-45.2); HEMOGLOBIN 8.4 GM/dl (10.7-15.3); MCH 27.8 pg (25.7-33.7); MCHC 32.4 g/dl (32.0-36.0); MEAN PLT VOLUME 8.9 fl (7.5-11.1); PLATELET COUNT 185 K/MM3 (134-434); RBC 3.01 M/mm3 (3.60-5.2); RDW 14.3 % (11.6-15.6); WHITE BLOOD COUNT 10.5 K/mm3 (4.0-10.8)
[2019-06-12] MEDS: ASCORBIC ACID 500 MG TABLET (FP) PO SCH ×2 (09:45→21:28)
[2019-06-12 09:54] LABS: CALCIUM 7.8 mg/dl (8.5-10); CREATININE 0.8 mg/dl (0.55-1.3); POTASSIUM 4.3 mmol/L (3.5-5.1)
[2019-06-12] MEDS: MULTIVITAMINS (DAILY MVI) TABLET (FP) PO SCH (10:00)
[2019-06-12] MEDS: PANTOPRAZOLE 40 MG TABLET (FP) PO SCH (10:05)
[2019-06-12] MEDS: POLYETHYLENE GLYCOL 3350 119 GM BTL PO SCH ×2 (10:09→21:29)
[2019-06-12] MEDS: DOXEPIN HCL 25 MG CAPSULE PO SCH ×2 (10:10→21:28)
[2019-06-12] MEDS: NIFEdipine E.R 60 MG TABLET (UD) PO SCH (10:10)
[2019-06-12] MEDS: SENNOSIDES/DOCUSATE COMBO (SENNA PLUS) TABLET (UD) PO SCH ×2 (10:15→21:26)
[2019-06-12] MEDS: ACYCLOVIR 400 MG TABLET PO SCH (10:16)
[2019-06-12] MEDS: HYDROCHLOROTHIAZIDE 25 MG TABLET (FP) PO SCH (10:20)
[2019-06-12] MEDS: LISINOPRIL 20 MG TABLET (FP) PO SCH ×2 (10:20→21:29)
[2019-06-12] MEDS: APIXABAN 2.5 MG TABLET PO SCH ×2 (10:20→21:30)
[2019-06-12] MEDS: CELECOXIB 200 MG CAPSULE PO SCH ×2 (10:20→21:27)
[2019-06-12] MEDS: FERROUS SO4 325 MG TABLET (FP) PO SCH ×2 (10:30→21:27)
[2019-06-12] MEDS: SODIUM CHLORIDE 1,000 ML IV SCH (20:00)
--- NOTE | 2019-06-12 20:00 | PN ---
Progress Note (short form) - Note Progress Note: Pt seen and examined. Doing well. Pain well controlled. AVSS Selected Entries 06/12/19 06/12/19 06/12/19 06:50 09:00 14:33 Temperature 99.1 F 98.6 F Pulse Rate 94 H Respiratory 20 17 Rate Blood Pressure 141/48 L 132/41 L O2 Sat by Pulse 96 97 Oximetry (%) Laboratory Tests 06/12/19 06/12/19 09:04 09:04 WBC 10.5 Hgb 8.4 L Hct 25.9 L Plt Count 185 Sodium 136 Potassium 4.3 Chloride 103 Carbon Dioxide 27 Anion Gap 6 L BUN 10.0 Creatinine 0.8 Est GFR (CKD-EPI)AfAm 92.87 Est GFR (CKD-EPI)NonAf 80.13 Random Glucose 128 H Calcium 7.8 L Gen: NAD RLE: dressing/immobilizer c/d/i, /5 GS/TA/EHL/FHL, sens intact to LT. Foot warm and well perfused with palpable pulses. A/P POD#1 s/p I&D R knee, component exchange. Continue standing IV abx because of high infection risk due to dehiscence PT/OOB - WBAT RLE with brace on at all times. Do not bend knee for 1 week to allow skin to heal. Plan for d/c to SNF/rehab Friday
[2019-06-12] MEDS: ATORVASTATIN CA 20 MG TABLET (FP) PO SCH (21:27)
[2019-06-12] MEDS ORDERED: oxyCODONE HCL 5 MG TABLET PO PRN (23:24)
[2019-06-12] MEDS: oxyCODONE HCL 10 MG SUSTAINED ACTING TABLET PO SCH (23:52)
[2019-06-13] MEDS: CEFAZOLIN 2 GM/D5W 2 GM/50 ML ML IVPB SCH ×3 (01:08→17:31)
[2019-06-13] MEDS: traMADol HCL 50 MG TABLET PO SCH ×4 (04:00→21:15)
[2019-06-13] MEDS: oxyCODONE HCL 5 MG TABLET PO PRN ×4 (05:56→16:55)
[2019-06-13 08:58] LABS: HEMATOCRIT 26.7 % (32.4-45.2); HEMOGLOBIN 8.4 GM/dl (10.7-15.3); MCH 26.9 pg (25.7-33.7); MCHC 31.3 g/dl (32.0-36.0); MEAN CELL VOLUME 86.1 fl (80-96); MEAN PLT VOLUME 9.3 fl (7.5-11.1); PLATELET COUNT 167 K/MM3 (134-434); RDW 14.1 % (11.6-15.6); WHITE BLOOD COUNT 11.5 K/mm3 (4.0-10.8)
[2019-06-13 09:20] LABS: CALCIUM 7.8 mg/dl (8.5-10); CREATININE 0.8 mg/dl (0.55-1.3); POTASSIUM 4.3 mmol/L (3.5-5.1)
[2019-06-13] MEDS: oxyCODONE HCL 10 MG SUSTAINED ACTING TABLET PO SCH ×2 (10:00→21:16)
[2019-06-13] MEDS: HYDROCHLOROTHIAZIDE 25 MG TABLET (FP) PO SCH (10:25)
[2019-06-13] MEDS: NIFEdipine E.R 60 MG TABLET (UD) PO SCH (10:40)
[2019-06-13] MEDS: POLYETHYLENE GLYCOL 3350 119 GM BTL PO SCH ×2 (10:41→21:17)
[2019-06-13] MEDS: FERROUS SO4 325 MG TABLET (FP) PO SCH ×2 (10:41→21:14)
[2019-06-13] MEDS: APIXABAN 2.5 MG TABLET PO SCH ×2 (10:41→21:14)
[2019-06-13] MEDS: CELECOXIB 200 MG CAPSULE PO SCH ×2 (10:41→21:15)
[2019-06-13] MEDS: SENNOSIDES/DOCUSATE COMBO (SENNA PLUS) TABLET (UD) PO SCH ×2 (10:43→21:13)
[2019-06-13] MEDS: LISINOPRIL 20 MG TABLET (FP) PO SCH ×2 (10:43→21:17)
[2019-06-13] MEDS: PANTOPRAZOLE 40 MG TABLET (FP) PO SCH (10:43)
[2019-06-13] MEDS: SOLIFENACIN SUCCINATE 5 MG TAB PO SCH (10:44)
[2019-06-13] MEDS: MULTIVITAMINS (DAILY MVI) TABLET (FP) PO SCH (10:44)
[2019-06-13] MEDS: DOXEPIN HCL 25 MG CAPSULE PO SCH ×2 (10:44→21:15)
[2019-06-13] MEDS: ACYCLOVIR 400 MG TABLET PO SCH (10:44)
[2019-06-13] MEDS: ASCORBIC ACID 500 MG TABLET (FP) PO SCH ×2 (10:44→21:14)
--- NOTE | 2019-06-13 13:49 | PN ---
Physical Exam: SUBJECTIVE: Patient seen and examined, c/o pain in right leg, also c/o ankle pain when bearing weight on foot OBJECTIVE: Vital Signs Period Temp Pulse Resp BP Sys/Holt Pulse Ox Last 24 Hr 98.0 F-99.4 F 80-107 19-20 93-120/45-58 95-96 GENERAL: The patient is awake, alert, and fully oriented, in no acute distress. HEAD: Normal with no signs of trauma. EYES: PERRL, extraocular movements intact, sclera anicteric, conjunctiva clear. No ptosis. ENT: Ears normal, nares patent, oropharynx clear without exudates, moist mucous membranes. NECK: Trachea midline, full range of motion, supple. LUNGS: Breath sounds equal, clear to auscultation bilaterally, no wheezes, no crackles, no accessory muscle use. HEART: Regular rate and rhythm, S1, S2 without murmur, rub or gallop. ABDOMEN: Soft, nontender, nondistended, normoactive bowel sounds, no guarding, no rebound, no hepatosplenomegaly, no masses. EXTREMITIES: 2+ pulses, warm, well-perfused, no edema. NEUROLOGICAL: Cranial nerves II through XII grossly intact. Normal speech, gait not observed. PSYCH: Normal mood, normal affect. SKIN: Warm, dry, normal turgor, no rashes or lesions noted Laboratory Results - last 24 hr 06/13/19 06/13/19 06:00 07:00 WBC 11.5 H RBC 3.10 L Hgb 8.4 L Hct 26.7 L MCV 86.1 MCH 26.9 MCHC 31.3 L RDW 14.1 Plt Count 167 MPV 9.3 Sodium 140 Potassium 4.3 Chloride 102 Carbon Dioxide 25 Anion Gap 13 BUN 10.0 Creatinine 0.8 Est GFR (CKD-EPI)AfAm 92.87 Est GFR (CKD-EPI)NonAf 80.13 Random Glucose 80 Calcium 7.8 L Active Medications Generic Name Dose Route Start Last Admin Trade Name Freq PRN Reason Stop Dose Admin Acyclovir 400 mg 06/08/19 10:00 06/13/19 10:44 Zovirax - PO 400 mg DAILY JUMA Administration Al Hydroxide/Mg Hydroxide 30 ml 06/07/19 15:24 Mylanta Oral Suspension - PO Q4H PRN DYSPEPSIA Apixaban 2.5 mg 06/12/19 10:00 06/13/19 10:41 Eliquis - PO 2.5 mg BID JUMA Administration Ascorbic Acid 500 mg 06/07/19 22:00 06/13/19 10:44 Vitamin C - PO 500 mg BID JUMA Administration Atorvastatin Calcium 20 mg 06/07/19 22:00 06/12/19 21:27 Lipitor - PO 20 mg HS JUMA Administration Celecoxib 200 mg 06/07/19 22:00 06/13/19 10:41 Celebrex - PO 200 mg BID JUMA Administration Doxepin HCl 25 mg 06/07/19 22:00 06/13/19 10:44 Sinequan - PO 25 mg BID JUMA Administration Fentanyl 50 mcg 06/11/19 17:29 06/11/19 18:10 Sublimaze Injection - IVPUSH 50 mcg [id number] PRN Administration PAIN-PACU ORDER X 4 DOSES ONLY Ferrous Sulfate 325 mg 06/10/19 22:00 06/13/19 10:41 Feosol - PO 325 mg BID JUMA Administration Hydrochlorothiazide 25 mg 06/08/19 10:00 06/13/19 10:25 Hctz - PO 25 mg DAILY JUMA Administration Hydromorphone HCl 0.25 mg 06/11/19 17:29 Dilaudid Injection - IVPUSH [id number] PRN PAIN-PACU ORDER X 4 DOSES ONLY Sodium Chloride 1,000 mls @ 125 mls/hr 06/10/19 18:45 06/12/19 20:00 Normal Saline - IV 125 mls/hr ASDIR JUMA Administration Cefazolin Sodium/Dextrose 2 gm in 50 mls @ 100 mls/hr 06/12/19 00:00 10:40 Ancef 2 Gm Premixed Ivpb - IVPB 100 mls/hr Q8H-IV JUMA Administration Lisinopril 20 mg 06/07/19 22:00 06/13/19 10:43 Prinivil PO 20 mg BID JUMA Administration Magnesium Hydroxide 30 ml 06/07/19 15:24 06/09/19 07:42 Milk Of Magnesia - PO 30 ml PRN PRN Administration CONSTIPATION Multivitamins/Minerals/Vitamin C 1 tab 06/08/19 10:00 06/13/19 10:44 Tab-A-Vit - PO 1 tab DAILY JUMA Administration Nifedipine 60 mg 06/08/19 10:00 06/13/19 10:40 Procardia Xl - PO 60 mg DAILY JUMA Administration Ondansetron HCl 4 mg 06/07/19 21:00 Zofran Injection IVPUSH Q6H PRN NAUSEA Ondansetron HCl 4 mg 06/11/19 17:29 Zofran Injection IVPUSH Q6H PRN NAUSEA AND/OR VOMITING Oxycodone HCl 10 mg 06/12/19 23:30 06/13/19 10:00 Oxycontin - PO 10 mg BID JUMA Administration Oxycodone HCl 10 mg 06/12/19 23:25 06/13/19 05:56 Roxicodone - PO 06/15/19 23:25 10 mg Q3H PRN Administration PAIN LEVEL 6-10 Oxycodone HCl 5 mg 06/12/19 23:30 06/13/19 12:15 Roxicodone - PO 5 mg Q3H PRN Administration PAIN LEVEL 1-5 Pantoprazole Sodium 40 mg 06/08/19 10:00 06/13/19 10:43 Protonix - PO 40 mg DAILY JUMA Administration Polyethylene Glycol 17 gm 06/08/19 22:45 06/13/19 10:41 Miralax (For Daily Use) - PO 17 gm BID JUMA Administration Senna/Docusate Sodium 2 tablet 06/07/19 22:00 06/13/19 10:43 Pericolace - PO 2 tablet BID JUMA Administration Solifenacin 5 mg 06/08/19 10:00 06/13/19 10:44 Vesicare - PO 5 mg DAILY JUMA Administration Tramadol HCl 50 mg 06/07/19 22:00 06/13/19 10:00 Ultram - PO 50 mg Q6H JUMA Administration ASSESSMENT/PLAN: Shaista Simmons is a 59 yr old F, HTN, Hypercholesterolemia, Obesity OA , Depression, chronic Back pain or percocet 1 tab TID at home #s/p right total knee arthoplasty 06/07 -pt s/p fall after sx, developed knee wound dehiscence -taken to OR for knee irrigation, debridement- POD#1 -c/w IV abt -on eliquis DVT prophylaxis -PT -pt c/o ankle pain when bearing weight- will order xray #Depression c/w home meds #Acute blood loss anemia, postoperative -monitor hg, today 8.4 -c/w iron #HTN #HLD -c/w home meds Full Code Dispo: requires inpatient treatment Visit type - Emergency Visit Emergency Visit: Yes ED Registration Date: 06/07/19 Care time: The patient presented to the Emergency Department on the above date and was hospitalized for further evaluation of their emergent condition. - New Patient This patient is new to me today: Yes Date on this admission: 06/13/19 - Critical Care Critical Care patient: No
--- NOTE | 2019-06-13 18:58 | PN ---
Progress Note (short form) - Note Progress Note: Pt seen and examined. C/o right ankle pain more so than knee pain. Xrays revealed minimally displaced distal fibula fracture. AVSS Laboratory Tests 06/13/19 06/13/19 06:00 07:00 WBC 11.5 H Hgb 8.4 L Hct 26.7 L Plt Count 167 Sodium 140 Potassium 4.3 Chloride 102 Carbon Dioxide 25 Anion Gap 13 BUN 10.0 Creatinine 0.8 Est GFR (CKD-EPI)AfAm 92.87 Est GFR (CKD-EPI)NonAf 80.13 Random Glucose 80 Calcium 7.8 L Gen: NAD RLE: c/d/i, NVID. (+) swelling and TTP over lateral malleolus Xrays revealed minimally displaced distal fibula fracture. A/P POD#6 s/p Isac R TKA, POD#2 s/p I&D and component exchange Hospitalist consult appreciated. Findings discussed with pt. CAM boot placed on RLE. Keep on at all times except when bathing. Can be full WBAT with boot on. Knee immobilizer d/c'ed. Can start ROM exercises for knee. D/C planning to SNF/rehab Eliquis BID for DVT ppx
[2019-06-13] MEDS: SODIUM CHLORIDE 1,000 ML IV SCH (19:00)
[2019-06-13] MEDS: ATORVASTATIN CA 20 MG TABLET (FP) PO SCH (21:14)
[2019-06-14] MEDS: CEFAZOLIN 2 GM/D5W 2 GM/50 ML ML IVPB SCH ×3 (02:20→17:36)
[2019-06-14] MEDS: traMADol HCL 50 MG TABLET PO SCH ×4 (04:48→22:01)
[2019-06-14 08:07] LABS: HEMATOCRIT 23.1 % (32.4-45.2); HEMOGLOBIN 7.6 GM/dl (10.7-15.3); MCH 28.1 pg (25.7-33.7); MCHC 32.9 g/dl (32.0-36.0); MEAN CELL VOLUME 85.4 fl (80-96); MEAN PLT VOLUME 8.2 fl (7.5-11.1); PLATELET COUNT 202 K/MM3 (134-434); RBC 2.71 M/mm3 (3.60-5.2); RDW 13.8 % (11.6-15.6); WHITE BLOOD COUNT 9.5 K/mm3 (4.0-10.8)
[2019-06-14 08:16] LABS: CALCIUM 7.8 mg/dl (8.5-10); CREATININE 0.7 mg/dl (0.55-1.3); POTASSIUM 3.7 mmol/L (3.5-5.1)
--- NOTE | 2019-06-14 10:29 | PN ---
Progress Note (short form) - Note Progress Note: Pt seen and examined. CAM boot placed yesterday for ankle fracture. AVSS Selected Entries 06/14/19 06:35 Temperature 98.5 F Pulse Rate 80 Respiratory 18 Rate Blood Pressure 102/49 L O2 Sat by Pulse 98 Oximetry (%) Oxygen Delivery Nasal Cannula Method Laboratory Tests 06/14/19 06/14/19 07:20 07:20 WBC 9.5 Hgb 7.6 L Hct 23.1 L Plt Count 202 Sodium 140 Potassium 3.7 Chloride 103 Carbon Dioxide 27 Anion Gap 10 BUN 10.0 Creatinine 0.7 Est GFR (CKD-EPI)AfAm 109.15 Est GFR (CKD-EPI)NonAf 94.17 Random Glucose 96 Calcium 7.8 L Gen: NAD RLE: c/d/i, NVID. (+) swelling and TTP over lateral malleolus A/P POD#7 s/p Isac R TKA, POD#2 s/p I&D and component exchange, right ankle fracture in CAM boot Keep CAM boot on at all times except when bathing. Can be full WBAT with boot on. Can start ROM exercises for knee. WBAT RLE D/C planning to SNF/rehab Eliquis BID for DVT ppx
[2019-06-14] MEDS: DOXEPIN HCL 25 MG CAPSULE PO SCH ×2 (10:41→22:02)
[2019-06-14] MEDS: MULTIVITAMINS (DAILY MVI) TABLET (FP) PO SCH (10:41)
[2019-06-14] MEDS: NIFEdipine E.R 60 MG TABLET (UD) PO SCH (10:42)
[2019-06-14] MEDS: LISINOPRIL 20 MG TABLET (FP) PO SCH ×2 (10:42→22:03)
[2019-06-14] MEDS: ACYCLOVIR 400 MG TABLET PO SCH (10:42)
[2019-06-14] MEDS: CELECOXIB 200 MG CAPSULE PO SCH ×2 (10:42→22:03)
[2019-06-14] MEDS: PANTOPRAZOLE 40 MG TABLET (FP) PO SCH (10:42)
[2019-06-14] MEDS: FERROUS SO4 325 MG TABLET (FP) PO SCH ×2 (10:43→22:01)
[2019-06-14] MEDS: ASCORBIC ACID 500 MG TABLET (FP) PO SCH ×2 (10:43→22:02)
[2019-06-14] MEDS: SENNOSIDES/DOCUSATE COMBO (SENNA PLUS) TABLET (UD) PO SCH ×2 (10:43→22:00)
[2019-06-14] MEDS: oxyCODONE HCL 10 MG SUSTAINED ACTING TABLET PO SCH ×2 (10:44→22:02)
[2019-06-14] MEDS: POLYETHYLENE GLYCOL 3350 119 GM BTL PO SCH ×2 (10:44→22:03)
[2019-06-14] MEDS: APIXABAN 2.5 MG TABLET PO SCH (10:49)
[2019-06-14] MEDS: HYDROCHLOROTHIAZIDE 25 MG TABLET (FP) PO SCH (10:50)
[2019-06-14] MEDS ORDERED: SODIUM CHLORIDE 500 ML IV STA (10:50)
[2019-06-14] MEDS ORDERED: KETOROLAC TROMETHAMINE 30 MG/1 ML VIAL IVPUSH ONE (11:00)
[2019-06-14] MEDS: ACETAMINOPHEN 325 MG TABLET (FP) PO SCH ×4 (11:03→23:29)
[2019-06-14] MEDS: SOLIFENACIN SUCCINATE 5 MG TAB PO SCH (11:03)
[2019-06-14] MEDS ORDERED: HEPARIN NA (PORCINE) 5,000 UNITS/ML 1ML VIAL IVPUSH PRN ×2 (11:04)
[2019-06-14] MEDS ORDERED: HEPARIN INFUSION - 25,000 UNITS/500 ML INFUS.BAG IVPB SCH (11:30)
--- NOTE | 2019-06-14 15:09 | PN ---
Physical Exam: SUBJECTIVE: Patient seen and examined oob to chair. OBJECTIVE: Vital Signs Period Temp Pulse Resp BP Sys/Holt Pulse Ox Last 24 Hr 98.3 F-99.2 F 80-87 18-19 89-136/37-50 95-98 GENERAL: The patient is awake, alert, and fully oriented, in no acute distress. LUNGS: Breath sounds equal, clear to auscultation bilaterally, no wheezes, no crackles, no accessory muscle use. HEART: Regular rate and rhythm, S1, S2 ABDOMEN: Soft, nontender, nondistended RLE: leg immobilizer in place, surgical wound not visualized NEUROLOGICAL: Cranial nerves II through XII grossly intact. Normal speech, gait not observed. SKIN: Warm, dry, normal turgor Laboratory Results - last 24 hr 06/11/19 06/14/19 06/14/19 11:50 07:20 07:20 WBC 9.5 RBC 2.71 L Hgb 7.6 L Hct 23.1 L MCV 85.4 MCH 28.1 MCHC 32.9 RDW 13.8 Plt Count 202 MPV 8.2 PTT (Actin FS) Sodium 140 Potassium 3.7 Chloride 103 Carbon Dioxide 27 Anion Gap 10 BUN 10.0 Creatinine 0.7 Est GFR (CKD-EPI)AfAm 109.15 Est GFR (CKD-EPI)NonAf 94.17 Random Glucose 96 Calcium 7.8 L Blood Type A POSITIVE Antibody Screen Negative Crossmatch IS Only See Detail 06/14/19 11:20 WBC RBC Hgb Hct MCV MCH MCHC RDW Plt Count MPV PTT (Actin FS) 27.2 Sodium Potassium Chloride Carbon Dioxide Anion Gap BUN Creatinine Est GFR (CKD-EPI)AfAm Est GFR (CKD-EPI)NonAf Random Glucose Calcium Blood Type Antibody Screen Crossmatch IS Only Active Medications Generic Name Dose Route Start Last Admin Trade Name Freq PRN Reason Stop Dose Admin Acetaminophen 650 mg 06/14/19 11:00 06/14/19 12:38 Tylenol - PO 06/17/19 10:59 Not Given Q6H JUMA Acyclovir 400 mg 06/08/19 10:00 06/14/19 10:42 Zovirax - PO 400 mg DAILY JUMA Administration Al Hydroxide/Mg Hydroxide 30 ml 06/07/19 15:24 Mylanta Oral Suspension - PO Q4H PRN DYSPEPSIA Ascorbic Acid 500 mg 06/07/19 22:00 06/14/19 10:43 Vitamin C - PO 500 mg BID JUMA Administration Atorvastatin Calcium 20 mg 06/07/19 22:00 06/13/19 21:14 Lipitor - PO 20 mg HS JUMA Administration Celecoxib 200 mg 06/07/19 22:00 06/14/19 10:42 Celebrex - PO 200 mg BID JUMA Administration Doxepin HCl 25 mg 06/07/19 22:00 06/14/19 10:41 Sinequan - PO 25 mg BID JUMA Administration Ferrous Sulfate 325 mg 06/10/19 22:00 06/14/19 10:43 Feosol - PO 325 mg BID JUMA Administration Heparin Sodium (Porcine) 1,000 unit 06/14/19 11:04 Heparin - IVPUSH PRN PRN Heparin Heparin Sodium (Porcine) 5,000 unit 06/14/19 11:04 Heparin - IVPUSH PRN PRN Heparin Hydrochlorothiazide 25 mg 06/08/19 10:00 06/14/19 10:50 Hctz - PO Not Given DAILY JUMA Cefazolin Sodium/Dextrose 2 gm in 50 mls @ 100 mls/hr 06/12/19 00:00 10:50 Ancef 2 Gm Premixed Ivpb - IVPB 100 mls/hr Q8H-IV JUMA Administration Heparin Sodium/Dextrose 25,000 units in 500 mls @ 36 mls/hr 06/14/19 11:30 12:05 Heparin Infusion - IVPB 1,800 units/hr TITR JUMA 36 mls/hr Administration Protocol 1,800 UNITS/HR Lisinopril 20 mg 06/07/19 22:00 06/14/19 10:42 Prinivil PO Not Given BID [facility] Magnesium Hydroxide 30 ml 06/07/19 15:24 06/09/19 07:42 Milk Of Magnesia - PO 30 ml PRN PRN Administration CONSTIPATION Multivitamins/Minerals/Vitamin C 1 tab 06/08/19 10:00 06/14/19 10:41 Tab-A-Vit - PO 1 tab DAILY JUMA Administration Nifedipine 60 mg 06/08/19 10:00 06/14/19 10:42 Procardia Xl - PO Not Given DAILY [facility] Ondansetron HCl 4 mg 06/07/19 21:00 Zofran Injection IVPUSH Q6H PRN NAUSEA Ondansetron HCl 4 mg 06/11/19 17:29 Zofran Injection IVPUSH Q6H PRN NAUSEA AND/OR VOMITING Oxycodone HCl 10 mg 06/12/19 23:30 06/14/19 10:44 Oxycontin - PO 10 mg BID JUMA Administration Oxycodone HCl 10 mg 06/12/19 23:25 06/13/19 16:55 Roxicodone - PO 06/15/19 23:25 10 mg Q3H PRN Administration PAIN LEVEL 6-10 Oxycodone HCl 5 mg 06/12/19 23:30 06/13/19 12:15 Roxicodone - PO 5 mg Q3H PRN Administration PAIN LEVEL 1-5 Pantoprazole Sodium 40 mg 06/08/19 10:00 06/14/19 10:42 Protonix - PO 40 mg DAILY JUMA Administration Polyethylene Glycol 17 gm 06/08/19 22:45 06/14/19 10:44 Miralax (For Daily Use) - PO Not Given BID JUMA Senna/Docusate Sodium 2 tablet 06/07/19 22:00 06/14/19 10:43 Pericolace - PO 2 tablet BID [facility] Administration Solifenacin 5 mg 06/08/19 10:00 06/14/19 11:03 Vesicare - PO 5 mg DAILY JUAM Administration Tramadol HCl 50 mg 06/07/19 22:00 06/14/19 11:03 Ultram - PO Not Given Q6H [facility] ASSESSMENT/PLAN: 59 year-old female with a PMH significant for HTN, HLD, HSV, depresssion, and osteoarthritis s/p right total knee arthroplasty on 06/07. Post-op course complicated by a fall which resulted in surgical wound dehiscence and prosthesis replacement on 06/11. Right total knee arthroplasty 06/07 Right knee irrigation and debridement, component exchange 06/11 --continue cefazolin (day #4) --pain management per surgery Acute blood loss anemia --transfused 1U PRBC intraop on 06/11 --transfused 1U PRBC today for Hgb 7.6, repeat cbc pending --Eliquis held, started on heparin drip; will discuss anticoagulation on discharge with surgery --continue ferrous suflate Hypertension --contnue HCTZ, lisinopril, nifedipine Hyperlipidemia --continue Lipitor HSV --daily acyclovir Depression --continue sinequan FEN Fluids: PO intake adequate Electrolytes: replete as indicated Nutrition: regular diet DVT prophylaxis: on heparin drip Physical therapy Dispo: continues to require inpatient care. Full code. Visit type - Emergency Visit Emergency Visit: No - New Patient This patient is new to me today: Yes Date on this admission: 06/14/19 - Critical Care Critical Care patient: No
[2019-06-14] MEDS: oxyCODONE HCL 5 MG TABLET PO PRN ×2 (18:38→23:30)
[2019-06-14 20:53] LABS: HEMATOCRIT 21.6 % (32.4-45.2); HEMOGLOBIN 7.1 GM/dl (10.7-15.3); MCH 28.6 pg (25.7-33.7); MCHC 32.8 g/dl (32.0-36.0); MEAN CELL VOLUME 87.2 fl (80-96); MEAN PLT VOLUME 8.2 fl (7.5-11.1); PLATELET COUNT 176 K/MM3 (134-434); RBC 2.48 M/mm3 (3.60-5.2); RDW 14.4 % (11.6-15.6); WHITE BLOOD COUNT 9.4 K/mm3 (4.0-10.8)
--- NOTE | 2019-06-14 21:40 | HOSP ---
Subjective - Review of Symptoms Events since last encounter: Transfused 1U PRBC earlier, repeat Hgb dropped 7.6-->7.1. Advised by nursing staff right leg is swollen and tense. Foot is warm. Dopplerable pulse. Called Dr. Mcguire who is in OR at [facility]. Via OR nurse, conveyed circumstances to him. Assessment & Plan Acute blood loss anemia --stop heparin drip --transfuse 2U PRBC now, lasix IVP 40mg in between units --CT RLE with contrast stat --NS@100mL/hr --hold anti-hypertensives Physical Examination Vital Signs: Vital Signs Temperature 98.8 F 06/14/19 17:09 Pulse Rate 81 06/14/19 17:09 Respiratory Rate 18 06/14/19 17:09 Blood Pressure 123/44 L 06/14/19 17:09 O2 Sat by Pulse Oximetry (%) 96 06/14/19 13:15 Labs: CBC, BMP 06/14/19 17:45 06/14/19 07:20
[2019-06-14] MEDS ORDERED: SODIUM CHLORIDE 1,000 ML IV SCH (21:45)
[2019-06-14] MEDS: ATORVASTATIN CA 20 MG TABLET (FP) PO SCH (22:01)
[2019-06-14] MEDS ORDERED: FUROSEMIDE 40 MG/4 ML INJECTABLE VIAL IVPUSH SCH (23:45)
--- NOTE | 2019-06-14 23:59 | PN ---
Progress Note (short form) - Note Progress Note: Called to see pt because of drop in H/H and increase RLE swelling since this afternoon. Pt was stable this morning when I saw her at 10:30 AM with mostly complaints of ankle pain. Since that time she was placed on a heparin drip and the leg started swelling. She was on Eliquis previously. Pt seen and examined. Awake/alert/comfortable. Still mostly c/o ankle pain. Does not have increased knee pain. RLE: swollen but warm and compressible. Mild TTP. Sensation intact. Moves toes and foot warm. No clinical suspicion for DVT. AVSS Selected Entries 06/14/19 22:00 Temperature 99.3 F Pulse Rate 84 Respiratory 16 Rate Blood Pressure 124/53 L O2 Sat by Pulse 96 Oximetry (%) Oxygen Delivery Room Air Method Laboratory Tests 06/14/19 06/14/19 06/14/19 07:20 07:20 17:45 WBC 9.4 Hgb 7.6 L 7.1 L Hct 21.6 L Plt Count 176 Sodium 140 Potassium 3.7 Chloride 103 Carbon Dioxide 27 Anion Gap 10 BUN 10.0 Creatinine 0.7 Est GFR (CKD-EPI)AfAm 109.15 Est GFR (CKD-EPI)NonAf 94.17 Random Glucose [address] reviewed by me but radiologist read pending. Appears to be diffuse hematoma around joint. Knee replacement components and bone are intact. A/P hematoma s/p revision knee replacement POD#3 HOLD HEPARIN DRIP. A revision knee replacement placed on a heparin drip will 100% fill up with blood because there is a lot of internal soft tissue dissection during the surgery that continues to ooze and bleed inside for several days even though the skin is closed. Currently vitals are stable and pt has no lethargy, altered mentation, or other signs of symptomatic anemia - Do not transfuse tonight. Recheck H/H in AM and if it is low AND SHE IS SYMPTOMATIC then I will transfuse 1 unit. Check radiologist official CT read when available for any additional findings. Elevate RLE when in bed. HOLD HEPARIN DRIP. Restart Eliquis when H/H stable. OOB with PT in the AM - WBAT RLE. Ambulation may be limited by pain from ankle fracture but she can at least get OOB and do ROM exercises. Hold discharge to rehab until this situation is stable.
[2019-06-15] MEDS: CEFAZOLIN 2 GM/D5W 2 GM/50 ML ML IVPB SCH ×3 (01:43→18:40)
[2019-06-15] MEDS: traMADol HCL 50 MG TABLET PO SCH ×5 (04:44→21:15)
[2019-06-15] MEDS: ACETAMINOPHEN 325 MG TABLET (FP) PO SCH ×4 (04:46→23:30)
[2019-06-15] MEDS: oxyCODONE HCL 5 MG TABLET PO PRN ×4 (06:17→23:29)
[2019-06-15 07:57] LABS: BASO % 0.1 % (0-2.0); HEMATOCRIT 25.6 % (32.4-45.2); LYMPH % 20.9 % (8-40); MCH 27.4 pg (25.7-33.7); MCHC 31.2 g/dl (32.0-36.0); MEAN CELL VOLUME 87.7 fl (80-96); MEAN PLT VOLUME 8.3 fl (7.5-11.1); PLATELET COUNT 233 K/MM3 (134-434); RBC 2.92 M/mm3 (3.60-5.2); RDW 14.3 % (11.6-15.6); WHITE BLOOD COUNT 8.1 K/mm3 (4.0-10.8)
[2019-06-15 07:59] LABS: INR 1.13 (0.82-1.09); PROTHROMBIN TIME (PATIENT) 12.6 SEC (10.2-13.0)
[2019-06-15 08:18] LABS: ALBUMIN 2.2 g/dl (3.4-5.0); BILIRUBIN,TOTAL 0.4 mg/dl (0.2-1); CALCIUM 7.9 mg/dl (8.5-10); CREATININE 0.7 mg/dl (0.55-1.3); MAGNESIUM 1.8 mg/dL (1.8-2.4); POTASSIUM 3.9 mmol/L (3.5-5.1); TOT PROT 5.2 g/dl (6.4-8.2)
[2019-06-15] MEDS: DOXEPIN HCL 25 MG CAPSULE PO SCH ×2 (09:27→21:14)
[2019-06-15] MEDS: PANTOPRAZOLE 40 MG TABLET (FP) PO SCH (09:27)
[2019-06-15] MEDS: MULTIVITAMINS (DAILY MVI) TABLET (FP) PO SCH (09:28)
[2019-06-15] MEDS: FERROUS SO4 325 MG TABLET (FP) PO SCH ×2 (09:28→21:15)
[2019-06-15] MEDS: CELECOXIB 200 MG CAPSULE PO SCH ×2 (09:28→21:14)
[2019-06-15] MEDS: ASCORBIC ACID 500 MG TABLET (FP) PO SCH ×2 (09:29→21:14)
[2019-06-15] MEDS: ACYCLOVIR 400 MG TABLET PO SCH (09:29)
[2019-06-15] MEDS: SOLIFENACIN SUCCINATE 5 MG TAB PO SCH (09:30)
[2019-06-15] MEDS: LISINOPRIL 20 MG TABLET (FP) PO SCH ×2 (09:30→22:05)
[2019-06-15] MEDS: NIFEdipine E.R 60 MG TABLET (UD) PO SCH (09:30)
[2019-06-15] MEDS: HYDROCHLOROTHIAZIDE 25 MG TABLET (FP) PO SCH (09:30)
[2019-06-15] MEDS: SENNOSIDES/DOCUSATE COMBO (SENNA PLUS) TABLET (UD) PO SCH ×2 (09:31→21:16)
[2019-06-15] MEDS: oxyCODONE HCL 10 MG SUSTAINED ACTING TABLET PO SCH ×2 (09:32→21:16)
--- NOTE | 2019-06-15 09:32 | PN ---
Physical Exam: SUBJECTIVE: Patient seen and examined. Just received pain med, pain has been well-controlled. OBJECTIVE: Vital Signs Period Temp Pulse Resp BP Sys/Holt Pulse Ox Last 24 Hr 97.9 F-99.3 F 75-90 16-19 89-146/41-82 95-100 GENERAL: The patient is awake, alert, and fully oriented, in no acute distress. LUNGS: Breath sounds equal, clear to auscultation bilaterally, no wheezes, no crackles, no accessory muscle use. HEART: Regular rate and rhythm, S1, S2 without murmur, rub or gallop. ABDOMEN: Soft, nontender, nondistended RLE: swelling from knee to foot, surgicel dressings are c/d/i; 2+ DP pulse NEUROLOGICAL: Cranial nerves II through XII grossly intact. Normal speech Laboratory Results - last 24 hr 06/11/19 06/14/19 06/14/19 11:50 11:20 17:45 WBC RBC Hgb Hct MCV MCH MCHC RDW Plt Count MPV Absolute Neuts (auto) Neutrophils % Lymphocytes % Monocytes % Eosinophils % Basophils % PT with INR INR PTT (Actin FS) 27.2 63.0 H Sodium Potassium Chloride Carbon Dioxide Anion Gap BUN Creatinine Est GFR (CKD-EPI)AfAm Est GFR (CKD-EPI)NonAf Random Glucose Calcium Magnesium Total Bilirubin AST ALT Alkaline Phosphatase Total Protein Albumin Blood Type A POSITIVE Antibody Screen Negative Crossmatch Crossmatch IS Only See Detail 06/14/19 06/14/19 06/15/19 17:45 21:44 07:07 WBC 9.4 RBC 2.48 L Hgb 7.1 L Hct 21.6 L MCV 87.2 MCH 28.6 MCHC 32.8 RDW 14.4 Plt Count 176 MPV 8.2 Absolute Neuts (auto) Neutrophils % Lymphocytes % Monocytes % Eosinophils % Basophils % PT with INR 12.6 INR 1.13 PTT (Actin FS) Sodium Potassium Chloride Carbon Dioxide Anion Gap BUN Creatinine Est GFR (CKD-EPI)AfAm Est GFR (CKD-EPI)NonAf Random Glucose Calcium Magnesium Total Bilirubin AST ALT Alkaline Phosphatase Total Protein Albumin Blood Type A POSITIVE Antibody Screen Negative Crossmatch See Detail Crossmatch IS Only 06/15/19 06/15/19 07:07 07:07 WBC 8.1 RBC 2.92 L Hgb 8.0 L Hct 25.6 L D MCV 87.7 MCH 27.4 MCHC 31.2 L RDW 14.3 Plt Count 233 MPV 8.3 Absolute Neuts (auto) 5.0 Neutrophils % 62.0 Lymphocytes % 20.9 Monocytes % 11.0 H Eosinophils % 6.0 H Basophils % 0.1 PT with INR INR PTT (Actin FS) Sodium 138 Potassium 3.9 Chloride 105 Carbon Dioxide 28 Anion Gap 5 L BUN 10.0 Creatinine 0.7 Est GFR (CKD-EPI)AfAm 109.15 Est GFR (CKD-EPI)NonAf 94.17 Random Glucose 78 Calcium 7.9 L Magnesium 1.8 Total Bilirubin 0.4 AST 25 ALT 9 L Alkaline Phosphatase 44 L Total Protein 5.2 L Albumin 2.2 L Blood Type Antibody Screen Crossmatch Crossmatch IS Only Active Medications Generic Name Dose Route Start Last Admin Trade Name Freq PRN Reason Stop Dose Admin Acetaminophen 650 mg 06/14/19 11:00 06/15/19 04:46 Tylenol - PO 06/17/19 10:59 Not Given Q6H [facility] Acyclovir 400 mg 06/08/19 10:00 06/14/19 10:42 Zovirax - PO 400 mg DAILY JUMA Administration Al Hydroxide/Mg Hydroxide 30 ml 06/07/19 15:24 Mylanta Oral Suspension - PO Q4H PRN DYSPEPSIA Ascorbic Acid 500 mg 06/07/19 22:00 06/14/19 22:02 Vitamin C - PO 500 mg BID JUMA Administration Atorvastatin Calcium 20 mg 06/07/19 22:00 06/14/19 22:01 Lipitor - PO 20 mg HS JUMA Administration Celecoxib 200 mg 06/07/19 22:00 06/14/19 22:03 Celebrex - PO Not Given BID JUMA Doxepin HCl 25 mg 06/07/19 22:00 06/14/19 22:02 Sinequan - PO 25 mg BID JUMA Administration Ferrous Sulfate 325 mg 06/10/19 22:00 06/14/19 22:01 Feosol - PO 325 mg BID JUMA Administration Hydrochlorothiazide 25 mg 06/08/19 10:00 06/14/19 10:50 Hctz - PO Not Given DAILY [facility] Cefazolin Sodium/Dextrose 2 gm in 50 mls @ 100 mls/hr 06/12/19 00:00 01:43 Ancef 2 Gm Premixed Ivpb - IVPB 100 mls/hr Q8H-IV JUMA Administration Sodium Chloride 1,000 mls @ 100 mls/hr 06/14/19 21:45 06/14/19 22:03 Normal Saline - IV 100 mls/hr ASDIR JUMA Administration Lisinopril 20 mg 06/07/19 22:00 06/14/19 22:03 Prinivil PO Not Given BID JUMA Magnesium Hydroxide 30 ml 06/07/19 15:24 06/09/19 07:42 Milk Of Magnesia - PO 30 ml PRN PRN Administration CONSTIPATION Multivitamins/Minerals/Vitamin C 1 tab 06/08/19 10:00 06/14/19 10:41 Tab-A-Vit - PO 1 tab DAILY [facility] Administration Nifedipine 60 mg 06/08/19 10:00 06/14/19 10:42 Procardia Xl - PO Not Given DAILY [facility] Ondansetron HCl 4 mg 06/07/19 21:00 Zofran Injection IVPUSH Q6H PRN NAUSEA Oxycodone HCl 10 mg 06/12/19 23:30 06/14/19 22:02 Oxycontin - PO 10 mg BID JUMA Administration Oxycodone HCl 10 mg 06/12/19 23:25 06/15/19 06:17 Roxicodone - PO 06/15/19 23:25 10 mg Q3H PRN Administration PAIN LEVEL 6-10 Oxycodone HCl 5 mg 06/12/19 23:30 06/13/19 12:15 Roxicodone - PO 5 mg Q3H PRN Administration PAIN LEVEL 1-5 Pantoprazole Sodium 40 mg 06/08/19 10:00 06/14/19 10:42 Protonix - PO 40 mg DAILY [facility] Administration Polyethylene Glycol 17 gm 06/08/19 22:45 06/14/19 22:03 Miralax (For Daily Use) - PO Not Given BID [facility] Senna/Docusate Sodium 2 tablet 06/07/19 22:00 06/14/19 22:00 Pericolace - PO 2 tablet BID JUMA Administration Solifenacin 5 mg 06/08/19 10:00 06/14/19 11:03 Vesicare - PO 5 mg DAILY JUMA Administration Tramadol HCl 50 mg 06/07/19 22:00 06/15/19 04:44 Ultram - PO 50 mg Q6H JUMA Administration ASSESSMENT/PLAN 59 year-old female with a PMH significant for HTN, HLD, HSV, depresssion, and osteoarthritis s/p right total knee arthroplasty on 06/07. Post-op course complicated by a fall which resulted in surgical wound dehiscence and prosthesis replacement on 06/11. Right total knee arthroplasty 06/07 Right knee irrigation and debridement, component exchange 06/11 --continue cefazolin (day #4) --pain is well-controlled Acute blood loss anemia --transfused 1U PRBC intraop on 06/11 --transfused 1U PRBC today for Hgb 7.6; dropped to 7.1, this morning recovered to 8.0 --06/14 CT: no large collection suspicious for hematoma --Eliquis/UFH on hold --repeat cbc q8h; if remains stable, restart eliquis tonight --continue ferrous sulfate Hypertension --continue HCTZ, lisinopril, nifedipine Hyperlipidemia --continue Lipitor HSV --daily acyclovir Depression --continue sinequan FEN Fluids: PO intake adequate Electrolytes: replete as indicated Nutrition: regular diet DVT prophylaxis: on heparin drip Physical therapy Dispo: continues to require inpatient care. Full code. Visit type - Emergency Visit Emergency Visit: Yes ED Registration Date: 06/07/19 Care time: The patient presented to the Emergency Department on the above date and was hospitalized for further evaluation of their emergent condition. - New Patient This patient is new to me today: No - Critical Care Critical Care patient: No
[2019-06-15] MEDS: POLYETHYLENE GLYCOL 3350 119 GM BTL PO SCH ×2 (09:53→21:17)
--- NOTE | 2019-06-15 13:54 | PATH ---
Surgical Pathology Report Patient Name: LAINE ENRIQUEZ Med. Rec. #: [id number] /Age/Gender: 1960 (Age: 59) / F Account: [id number] Location: [facility] MED[facility] Taken: 06/11/2019 Received: 06/11/2019 Reported: 06/15/2019 Physicians: Pedro Mcguire M.D. Specimen(s) Received EXPLANTED FEMORAL , TIBIAL COMPONENTS AND TIBIAL INSERT Clinical History Status post right total knee replacement Wound Dehiscence/Dislocation Final Diagnosis EXPLANTED FEMORAL HEAD, TIBIAL COMPONENTS, TIBIAL INSERT, COMPONENT EXCHANGE: SURGICAL HARDWARE. MACROSCOPIC DIAGNOSIS. Electronically Signed Yessica Alcantar M.D. Gross Description Received fresh labeled "explanted femoral head, tibial components, tibial insert," are 3 johnson metallic and white plastic portions of hardware ranging from 6.8-7.2 cm in greatest dimension, consistent with a knee explant. No soft tissue is present. No sections are submitted, gross only. /06/14/2019 saudi06/14/2019
[2019-06-15 15:59] LABS: HEMATOCRIT 26.3 % (32.4-45.2); HEMOGLOBIN 8.4 GM/dl (10.7-15.3); MCH 27.9 pg (25.7-33.7); MCHC 31.9 g/dl (32.0-36.0); MEAN CELL VOLUME 87.7 fl (80-96); MEAN PLT VOLUME 7.9 fl (7.5-11.1); PLATELET COUNT 251 K/MM3 (134-434); RDW 14.5 % (11.6-15.6); WHITE BLOOD COUNT 9.2 K/mm3 (4.0-10.8)
[2019-06-15] MEDS: ATORVASTATIN CA 20 MG TABLET (FP) PO SCH (21:16)
[2019-06-15] MEDS ORDERED: APIXABAN 5 MG TABLET PO SCH (22:00)
[2019-06-15] MEDS: APIXABAN 5 MG TABLET PO SCH (22:05)
[2019-06-15] MEDS ORDERED: ASPIRIN 325 MG ENTERIC COATED TABLET (FP) PO ONE (22:05)
--- NOTE | 2019-06-15 22:29 | PN ---
Progress Note (short form) - Note Progress Note: Pt seen and examined. Doing well. Swelling improved. Ambulated more with PT. AVSS Selected Entries 06/15/19 18:00 Temperature 99.0 F Pulse Rate 76 Respiratory 18 Rate Blood Pressure 103/53 L O2 Sat by Pulse 95 Oximetry (%) Oxygen Delivery Room Air Method Laboratory Tests 06/15/19 06/15/19 06/15/19 07:07 07:07 15:45 WBC 8.1 9.2 Hgb 8.4 L Hct 26.3 L Plt Count 251 Sodium 138 Potassium 3.9 Chloride 105 Carbon Dioxide 28 Anion Gap 5 L BUN 10.0 Creatinine 0.7 Est GFR (CKD-EPI)AfAm 109.15 Est GFR (CKD-EPI)NonAf 94.17 Random Glucose 78 Calcium 7.9 L Magnesium 1.8 Total Bilirubin 0.4 AST 25 ALT 9 L Alkaline Phosphatase 44 L Gen: NAD RLE: c/d/i, less swollen, warm and compressible. NVID. A/P POD# 4 s/p R TKA revision after fall, R ankle fracture after fall PT/OOB - WBAT RLE with CAM boot on. Can remove CAM boot for ROM exercises Can leave CAM boot off when in bed if that is more comfortable for her. Only needs to have boot on when weightbearing on leg - i.e. PT or trips to bathroom. H/H stable - restart prophylactic dose of Eliquis - 2.5mg BID x 35 days total from last surgery D/C planning to rehab - ok to transfer whenever bed available.
[2019-06-16] MEDS: CEFAZOLIN 2 GM/D5W 2 GM/50 ML ML IVPB SCH ×2 (02:04→09:04)
[2019-06-16] MEDS: traMADol HCL 50 MG TABLET PO SCH ×2 (04:23→09:06)
[2019-06-16] MEDS: ACETAMINOPHEN 325 MG TABLET (FP) PO SCH ×2 (05:38→12:18)
[2019-06-16] MEDS: oxyCODONE HCL 5 MG TABLET PO PRN (05:39)
[2019-06-16 06:33] VITALS: BP 135/48; PULSE 75; TEMP 98.1
[2019-06-16 07:55] LABS: HEMOGLOBIN 8.2 GM/dl (10.7-15.3); MCH 28.3 pg (25.7-33.7); MCHC 32.7 g/dl (32.0-36.0); MEAN CELL VOLUME 86.7 fl (80-96); MEAN PLT VOLUME 8.1 fl (7.5-11.1); PLATELET COUNT 261 K/MM3 (134-434); RBC 2.88 M/mm3 (3.60-5.2); RDW 14.3 % (11.6-15.6); WHITE BLOOD COUNT 7.9 K/mm3 (4.0-10.8)
--- NOTE | 2019-06-16 08:26 | PN ---
Physical Exam: Dr. Mcguire cleared the patient for discharge and has entered discharge instructions. The hospitalist team will sign off. Visit type - Emergency Visit Emergency Visit: No - New Patient This patient is new to me today: No - Critical Care Critical Care patient: No - Discharge Referral Referred to [facility] No
[2019-06-16] MEDS: SENNOSIDES/DOCUSATE COMBO (SENNA PLUS) TABLET (UD) PO SCH ×2 (08:57→08:59)
[2019-06-16] MEDS: HYDROCHLOROTHIAZIDE 25 MG TABLET (FP) PO SCH ×2 (08:57→10:00)
[2019-06-16] MEDS: FERROUS SO4 325 MG TABLET (FP) PO SCH ×2 (08:58→10:00)
[2019-06-16] MEDS: SOLIFENACIN SUCCINATE 5 MG TAB PO SCH (08:59)
[2019-06-16] MEDS: MULTIVITAMINS (DAILY MVI) TABLET (FP) PO SCH (08:59)
[2019-06-16] MEDS: NIFEdipine E.R 60 MG TABLET (UD) PO SCH (09:00)
[2019-06-16] MEDS: DOXEPIN HCL 25 MG CAPSULE PO SCH (09:00)
[2019-06-16] MEDS: PANTOPRAZOLE 40 MG TABLET (FP) PO SCH (09:01)
[2019-06-16] MEDS: ASCORBIC ACID 500 MG TABLET (FP) PO SCH (09:01)
[2019-06-16] MEDS: ACYCLOVIR 400 MG TABLET PO SCH (09:01)
[2019-06-16] MEDS: CELECOXIB 200 MG CAPSULE PO SCH (09:03)
[2019-06-16] MEDS: oxyCODONE HCL 10 MG SUSTAINED ACTING TABLET PO SCH (09:05)
[2019-06-16] MEDS ORDERED: ASPIRIN COATED 81 MG TABLET.EC PO SCH (10:00)
[2019-06-16] MEDS: LISINOPRIL 20 MG TABLET (FP) PO SCH (10:00)
[2019-06-16] MEDS: APIXABAN 5 MG TABLET PO SCH (10:00)
[2019-06-16] MEDS: POLYETHYLENE GLYCOL 3350 119 GM BTL PO SCH (11:24)
--- NOTE | 2019-06-16 21:48 | OP ---
DATE OF OPERATION: 06/11/2019 PREOPERATIVE DIAGNOSIS: Right total knee replacement wound dehiscence and periprosthetic dislocation. POSTOPERATIVE DIAGNOSIS: Right total knee replacement wound dehiscence and periprosthetic dislocation. PROCEDURE: Left total knee replacement irrigation and debridement, exchange of tibial and femoral components, polyethylene exchange, closure of wound dehiscence. ATTENDING: Justin Roblero M.D. SITE SAFETY COORDINATOR: Yen Gutierrez ANESTHESIA: General. ESTIMATED BLOOD LOSS: 250 mL. COMPLICATIONS: None. DISPOSITION: The patient was transferred to the PACU in stable condition. IMPLANTS USED: Mirtha cementless Triathlon knee replacement components in place were removed and replaced with cemented revision components. The components used were a size 5 Triathlon TS femoral component with 12 x 50 mm stem, size 4 Triathlon TS tibial component with 12 x 50 mm tibial stem, 19-mm total stabilized polyethylene component. INDICATION: This is a 59-year-old female who underwent a right total knee replacement on June 07, 2019. The surgery was uneventful, and the patient did well postoperatively, was ambulatory and discharge home was planned. While in the hospital on June 11, 2019, the patient fell while going to the bathroom and as her walker tipped over she rolled her ankle, causing an ankle fracture and then fell with all her weight, hyperflexing her knee, causing the wound to dehisce and the post of the polyethylene component disengage from the femoral component, causing a periprosthetic dislocation. The patient was seen and examined by Dr. Roblero and urgently brought back to the operating room after a CAT scan was performed and revealed no associated fractures. The patient was indicated for irrigation, debridement, and component exchange followed by wound closure. The risks, benefits, and alternatives to the procedure were explained to the patient in great detail, and she elected to proceed with surgery. DESCRIPTION OF PROCEDURE: On the day of surgery, the patient was taken to the operating room and placed on the OR table. A general anesthesia was administered by the anesthesiologist. The patient was then positioned supine on the table, and all bony prominences were padded. With the patient under anesthesia, the knee replacement was reduced and the left lower extremity was then prepped and draped in the usual sterile fashion. Intravenous antibiotics were given for infection prophylaxis. A surgical timeout was then performed with the team, and the patient's identity, procedure, side, and the availability of implants was confirmed. With the patient under anesthesia, the wound was explored and found to be full thickness dehiscence with both the skin as well as part of the arthrotomy closure open. The extensor mechanism was found to be intact, and there was no evidence of disruption both proximally or distally. There was no evidence of rupture of the medial or lateral collateral ligaments either. The entire incision was then opened, and all sutures from the previous closure were removed. The same was done for the arthrotomy. The knee was then flexed and the polyethylene insert was removed. Because cementless components were used for the index surgery, these were able to be easily removed, and we did so using the removal instruments in the Triathlon set. This allowed us to clean behind the implants and exchange them for new sterile components. The wound was then thoroughly irrigated with 3 L normal saline solution via pulsatile lavage. This irrigant contained 1 g of Ancef per 1 L of normal saline. Following this, a 3-minute dilute Betadine lavage was performed, and Betadine soaked sponges were then used to scrub the soft tissue and bony surfaces of any potential biological debris that could lead to infection. The wound was then again thoroughly irrigated with normal saline containing Ancef via pulsatile lavage device. We used a total of 3 additional liters. Once irrigation was finished, all bony surfaces were then dried. Bone cement was then prepared on the back table, and the final Triathlon TS revision components were cemented in place in the usual fashion. This did not require any additional bone cuts because the cut surfaces present after removal of the cementless implants fit perfectly with the cemented revision components. We did have to drill for the stems of both the tibia and femur, but this was easily done prior to irrigation. Once components were placed and extruded cement was removed, the polyethylene trial was placed, and the knee was put to extension, and axial pressure was applied for compression while the cement hardened. Once the cement had hardened, the knee was taken through a full range of motion to assess the stability, balance, and patellar tracking. This was found to be optimal, and the trial polyethylene was exchanged for the appropriately sized real implant. Once this was completed, an additional 3-minute dilute Betadine lavage was performed. The wound was then again irrigated with normal saline via pulsatile lavage. This saline also contained 1 g Ancef per 1 L normal saline for a total of 3 additional liters. All irrigation was removed, and the joint cavity was dried, and 1 g vancomycin powder and 2 g Ancef powder were placed in the wound around the implants for local infection prophylaxis. Wound closure was then begun. Number 1 Vicryl and number 2 Fiberwire sutures were used to close the arthrotomy. The entire closure was then oversewn with a number 0 V-Loc 180 barbed suture. Next, number 1 Vicryl and 2-0 V-Loc 90 sutures were used in the subcutaneous tissues. The skin was closed using javi as well as Dermabond skin adhesive for additional closure strength and watertight seal. The sterile Aquacel dressing was then placed and knee immobilizer was applied. The patient then was awakened and taken to the PACU in stable condition. JUSTIN ROBLERO M.D. CEASAR/[id number]
== END 2019-06-16 12:35 | DRG 302 ==
LOC: FM/S 09:06
PROVIDERS: ADMIT Student in an Organized Health Care Education/Training Program; ATTEND Student in an Organized Health Care Education/Training Program
PROC: 8E0Y0CZ Robotic Assisted Procedure of Lower Extremity, Open Approach (ICD-10-PCS; 2019-06-07)
PROC: 0SRC0JA Replacement of Right Knee Joint with Synthetic Substitute, Uncemented, Open Approach (ICD-10-PCS; principal; 2019-06-07 12:37)
PROC: 30233N1 Transfusion of Nonautologous Red Blood Cells into Peripheral Vein, Percutaneous Approach (ICD-10-PCS; 2019-06-11)
PROC: 0JBN0ZZ Excision of Right Lower Leg Subcutaneous Tissue and Fascia, Open Approach (ICD-10-PCS; 2019-06-12)
PROC: 0SPC0JZ Removal of Synthetic Substitute from Right Knee Joint, Open Approach (ICD-10-PCS; 2019-06-12)
PROC: 0SRC0J9 Replacement of Right Knee Joint with Synthetic Substitute, Cemented, Open Approach (ICD-10-PCS; 2019-06-12)
DX: M17.11 Unilateral primary osteoarthritis, right knee (principal); I10 Essential (primary) hypertension; E78.5 Hyperlipidemia, unspecified; D62 Acute posthemorrhagic anemia; N32.81 Overactive bladder; T81.30XA Disruption of wound, unspecified, initial encounter; T84.022A Instability of internal right knee prosthesis, initial encounter; F32.9 Major depressive disorder, single episode, unspecified; D64.9 Anemia, unspecified; R53.83 Other fatigue; I95.9 Hypotension, unspecified; E86.0 Dehydration; K21.9 Gastro-esophageal reflux disease without esophagitis; R32 Unspecified urinary incontinence; R15.9 Full incontinence of feces; Y83.8 Other surgical procedures as the cause of abnormal reaction of the patient, or of later complication, without mention of misadventure at the time of the procedure; Y92.230 Patient room in hospital as the place of occurrence of the external cause
CPT/HCPCS: 36415; 36430; 73560-TC-RT-FY; 73610-TC-RT-FY; 73630-TC-RT-FY; 73700-TC-RT; 73701-TC-RT; 80048; 80053; 83615; 83735; 84443; 85025; 85027; 85610; 85730; 86803; 86850; 86900; 86901; 86922; 87389; 88300-TC; 93005; 94760; 97116-GP; 97163-GP; J0131; J1100; J1644; J7030; P9058